=== PATIENT | female | born 1980 | race Caucasian/White ===

== ENCOUNTER 2018-11-17 04:27 | Emergency (ER) | payer BC ==
[~2018-11-17] VITALS: Ht 165.1 cm; Wt 117.9 kg
[~2018-11-17 04:27] MED LIST: CETI10CA PO; DCS100C PO; FERR-57 PO; HYDR-3720 PO; IBP800T PO; METR500T PO
--- OUTSIDE RECORDS SUMMARY | 2018-11-17 04:34 | XMS REPORT ---
Author LIAM Goldman [facility] eClinicalWorks Address Unknown Phone Unavailable Care Team Providers Care Translator And Interpreter Name Role Phone LIAM KAY CP Unavailable Allergies, Adverse Reactions, Alerts Substance Reaction Event Type N.K.D.A. Info Not Available Non Drug Allergy Problems Problem Type Condition Code Onset Dates Condition Status Problem Excessive or frequent menstruation 626.2 Active Problem Dysfunction of Eustachian tube 381.81 Active Problem Unspecified anemia 285.9 Active Assessment Menstrual period late N91.0 Active Problem Allergic rhinitis, cause unspecified 477.9 Active Problem Unspecified conjunctivitis 372.30 Active Medications Medication Code System Code Instructions Start Date End Date Status Dosage cetirizine [facility] [address]-98 10 mg March 04, 2014 take 1 tablet (10 mg) by oral route once daily Ferrous Sulfate [facility] [address]-16 325 (65 Fe) MG Orally 2 times a day 1 tablet Procedures Procedure Coding System Code Date ASSAY THYROID STIM HORMONE CPT-4 22010 Jul 11, 2015 VENIPUNCT, ROUTINE* CPT-4 33927 Jul 11, 2015 CHORIONIC GONADOTROPIN ASSAY CPT-4 87159 Jul 11, 2015 Office Visit, Est Pt., Level 3 CPT-4 71267 Jul 11, 2015 Vital Signs Date/Time: Jul 11, 2015 Temperature 98.6 F Weight 261.3 lbs Height 65 in BMI 43.48 Index Blood Pressure Diastolic 76 mmHg Blood Pressure Systolic 116 mmHg Cardiac Monitoring Heart Rate 76 bpm Results Name Result Date Reference Range Unit Abnormality Flag TSH ----TSH 1.570 [id number] 0.450-4.500 uIU/mL ROUTINE VENIPUNCTURE TEST, SERUM (QUAL) ----hCG,Beta Subunit,Qual,Serum Negative [id number] Negative <6 mIU/mL Summary Purpose eClinicalWorks Submission
--- OUTSIDE RECORDS SUMMARY | 2018-11-17 04:34 | XMS REPORT ---
Author Author BÁRBARA LARRY Organization eClinicalWorks Address Unknown Phone Unavailable Care Team Providers Care Inspector Wire Products Name Role Phone BÁRBARA LARRY CP Unavailable Allergies No Known Allergies Problems Problem Type Condition Code Onset Dates Condition Status Assessment Family history of diabetes mellitus Z83.3 Active Assessment General medical exam Z00.00 Active Assessment Morbid obesity E66.01 Active Problem Morbid obesity E66.01 Active Problem Family history of diabetes mellitus Z83.3 Active Problem General medical exam Z00.00 Active Problem Family history of PCOS Z84.2 Active Problem Encounter for weight loss counseling Z71.3 Active Problem Family history of cancer Z80.9 Active Problem Hirsutism L68.0 Active Assessment Family history of cancer Z80.9 Active Assessment Family history of PCOS Z84.2 Active Assessment Hirsutism L68.0 Active Medications No Known Medications Procedures Procedure Coding System Code Date COMPLETE CBC W/AUTO DIFF WBC CPT-4 53170 Oct 25, 2015 COMPREHEN METABOLIC PANEL CPT-4 99574 Oct 25, 2015 GLYCATED HEMOGLOBIN TEST CPT-4 51328 Oct 25, 2015 ASSAY OF TOTAL TESTOSTERONE CPT-4 97326 Oct 25, 2015 ASSAY THYROID STIM HORMONE CPT-4 62465 Oct 25, 2015 VENIPUNCT, ROUTINE* CPT-4 83064 Oct 25, 2015 GONADOTROPIN (FSH) CPT-4 30563 Oct 25, 2015 GONADOTROPIN (LH) CPT-4 34017 Oct 25, 2015 ASSAY OF INSULIN CPT-4 06671 Oct 25, 2015 ASSAY OF PROLACTIN CPT-4 88646 Oct 25, 2015 Results Name Result Date Reference Range Unit Abnormality Flag ROUTINE VENIPUNCTURE Summary Purpose eClinicalWorks Submission
--- OUTSIDE RECORDS SUMMARY | 2018-11-17 04:34 | XMS REPORT ---
Author Author ALEYDA NAPIER Organization [facility] Address [address] [place] [address] Care Team Providers Care Babcock Tester Name Role Phone MARLINE NAPIERICE Unavailable PROBLEMS Type Condition ICD9-CM Code LZG85-CB Code Onset Dates Condition Status SNOMED Code Problem Encounter for weight loss counseling Z71.3 Active 648932201 Problem Hirsutism L68.0 Active 383385278 Problem Family history of diabetes mellitus Z83.3 Active 172594495 Problem Family history of cancer Z80.9 Active 756408830 Problem Family history of PCOS Z84.2 Active Problem Morbid obesity E66.01 Active 399205525 Problem General medical exam Z00.00 Active 406849177 ALLERGIES No Known Allergies SOCIAL HISTORY Never Assessed PLAN OF CARE Activity Details Follow Up prn Reason: VITAL SIGNS Height 65 in 2016-12-03 Weight 250.2 lbs 2016-12-03 Temperature 98.0 degrees Fahrenheit 2016-12-03 Heart Rate 80 bpm 2016-12-03 Respiratory Rate 18 2016-12-03 BMI 41.63 kg/m2 2016-12-03 Blood pressure systolic 126 mmHg 2016-12-03 Blood pressure diastolic 72 mmHg 2016-12-03 MEDICATIONS Medication Instructions Dosage Frequency Start Date End Date Duration Status Ferrous Sulfate 325 (65 Fe) MG Orally 2 times a day 1 tablet 12h Active cetirizine 10 mg by oral route 2 times a day tablet 12h February, Active RESULTS No Results PROCEDURES No Known procedures IMMUNIZATIONS No Known Immunizations MEDICAL (GENERAL) HISTORY Type Description Date Medical History Anemia Surgical History Tonsillectomy Surgical History Right elbow bone spur removed Surgical History Fibroid Tumor removed Hospitalization History Past surgery
--- OUTSIDE RECORDS SUMMARY | 2018-11-17 04:34 | XMS REPORT ---
Author Author BÁRBARA LARRY Organization eClinicalWorks Address Unknown Phone Unavailable Care Team Providers Care Z Os Mainframe Systems Programmer Name Role Phone BÁRBARA LARRY CP Unavailable Allergies, Adverse Reactions, Alerts Substance [...] Hirsutism L68.0 Active Assessment Family history of PCOS Z84.2 Active Assessment Hirsutism L68.0 Active Assessment Family history of cancer Z80.9 Active Medications Medication Code System Code Instructions Start Date End Date Status Dosage Spironolactone [facility] [address]-96 50 MG Orally Twice a day Oct 24, 2015 1 tablet Ferrous Sulfate [facility] [address]-52 325 (65 Fe) MG Orally 2 times a day 1 tablet cetirizine [facility] [address]-68 10 mg March 04, 2014 take 1 tablet (10 mg) by oral route once daily Procedures Procedure Coding System Code Date Office Visit, Est Pt., Level 3 CPT-4 58960 Oct 24, 2015 Vital Signs Date/Time: Oct 24, 2015 Temperature 98.6 F Weight 252.3 lbs Height 65 in BMI 41.98 Index Blood Pressure Diastolic 82 mmHg Blood Pressure Systolic 118 mmHg Cardiac Monitoring Heart Rate 80 bpm Results No Known Results Summary Purpose eClinicalWorks Submission
--- OUTSIDE RECORDS SUMMARY | 2018-11-17 04:34 | XMS REPORT ---
Author Author LIAM KAY [facility] eClinicalWorks Address Unknown Phone Unavailable Care Team Providers Care A And P Mechanic Name Role Phone LIAM KAY CP Unavailable Allergies, Adverse Reactions, Alerts Substance Reaction Event Type N.K.D.A. Info Not Available Non Drug Allergy Problems Problem Type Condition Code Onset Dates Condition Status Problem Unspecified anemia 285.9 Active Problem Excessive or frequent menstruation 626.2 Active Problem Encounter for weight loss counseling Z71.3 Active Problem Unspecified conjunctivitis 372.30 Active Assessment Encounter for weight loss counseling Z71.3 Active Problem Dysfunction of Eustachian tube 381.81 Active Problem Allergic rhinitis, cause unspecified 477.9 Active Medications Medication Code System Code Instructions Start Date End Date Status Dosage Phentermine HCl [facility] [address]-34 37.5 MG Orally Once a day 30 minutes before breakfast Aug 25, 2015 as directed Ferrous Sulfate [facility] [address]-35 325 (65 Fe) MG Orally 2 times a day 1 tablet cetirizine [facility] [address]-78 10 mg March 04, 2014 take 1 tablet (10 mg) by oral route once daily Procedures Procedure Coding System Code Date Office Visit, Est Pt., Level 3 CPT-4 76997 Sep 22, 2015 Vital Signs Date/Time: Sep 22, 2015 Temperature 97.9 F Weight 256 lbs Height 65 in BMI 42.60 Index Blood Pressure Diastolic 80 mmHg Blood Pressure Systolic 110 mmHg Cardiac Monitoring Heart Rate 84 bpm Results No Known Results Summary Purpose eClinicalWorks Submission
--- OUTSIDE RECORDS SUMMARY | 2018-11-17 04:35 | XMS REPORT ---
Author Author BÁRBARA LARRY Organization eClinicalWorks Address Unknown Phone Unavailable Care Team Providers Care Agricultural And Forestry Supervisor Name Role Phone BÁRBARA LARRY CP Unavailable Allergies, Adverse Reactions, Alerts Substance Reaction Event Type N.K.D.A. Info Not Available Non Drug Allergy Problems Problem Type Condition Code Onset Dates Condition Status Assessment Hirsutism L68.0 Active Assessment Constipation K59.00 Active Problem Morbid obesity E66.01 Active Problem Family history of diabetes mellitus Z83.3 Active Problem General medical exam Z00.00 Active Problem Family history of PCOS Z84.2 Active Problem Encounter for weight loss counseling Z71.3 Active Problem Family history of cancer Z80.9 Active Problem Hirsutism L68.0 Active Medications Medication Code System Code Instructions Start Date End Date Status Dosage Ferrous Sulfate [facility] [address]-95 325 (65 Fe) MG Orally 2 times a day 1 tablet cetirizine [facility] [address]-85 10 mg March 04, 2014 take 1 tablet (10 mg) by oral route once daily Spironolactone [facility] [address]-08 100 MG Orally Once a day Nov 07, 2015 1 tablet Procedures Procedure Coding System Code Date Office Visit, Est Pt., Level 3 CPT-4 92912 Nov 07, 2015 Vital Signs Date/Time: Nov 07, 2015 Temperature 98.0 F Weight 247.5 lbs Height 65 in BMI 41.18 Index Blood Pressure Diastolic 80 mmHg Blood Pressure Systolic 120 mmHg Cardiac Monitoring Heart Rate 82 bpm Results No Known Results Summary Purpose eClinicalWorks Submission
--- OUTSIDE RECORDS SUMMARY | 2018-11-17 04:35 | XMS REPORT ---
Author LIAM Goldman [facility] eClinicalWorks Address Unknown Phone Unavailable Care Team Providers Care Duct Installer Name Role Phone LIAM KAY CP Unavailable [...] Date End Date Status Dosage Phentermine HCl [facility] [address]-28 37.5 MG Orally Once a day 30 minutes before breakfast Aug 25, 2015 as directed Ferrous Sulfate [facility] [address]-07 325 (65 Fe) MG Orally 2 times a day 1 tablet cetirizine [facility] [address]-85 10 mg March 04, 2014 take 1 tablet (10 mg) by oral route once daily Procedures Procedure Coding System Code Date Office Visit, Est Pt., Level 3 CPT-4 39806 Aug 25, 2015 Vital Signs Date/Time: Aug 25, 2015 Temperature 98.4 F Weight 262.1 lbs Height 65 in BMI 43.61 Index Blood Pressure Diastolic 84 mmHg Blood Pressure Systolic 122 mmHg Cardiac Monitoring Heart Rate 80 bpm Results No Known Results Summary Purpose eClinicalWorks Submission
--- OUTSIDE RECORDS SUMMARY | 2018-11-17 04:35 | XMS REPORT | Continuity of Care Document ---
Author Author [facility] Address Unknown Phone Unavailable Allergies Active Description Code Type Severity Reaction Onset Reported/Identified Relationship to Patient Clinical Status Yes No Known Drug Allergies [id number] Drug Allergy Unknown N/A 04/09/2010 Medications There is no data. Problems Date Dx Coded Attending Type Code Diagnosis Diagnosed By 05/06/2013 EDNA MAY DO 285.9 ANEMIA 05/06/2013 WAYNE LAMBERT MD 285.9 ANEMIA 05/06/2013 WAYNE LAMBERT MD 285.9 ANEMIA 05/06/2013 MAVERICK PINZON APRN R 285.9 ANEMIA 2013 WAYNE LAMBERT MD 626.2 MENORRHAGIA 2013 WAYNE LAMBERT MD 626.2 MENORRHAGIA 2013 MAVERICK PINZON APRN R 626.2 MENORRHAGIA 01/06/2014 NUNO MADRID MD Ot 218.9 UTERINE LEIOMYOMA NOS 01/06/2014 NUNO MADRID MD Ot 278.00 OBESITY, NOS 01/06/2014 NUNO MADRID MD Ot 285.1 AC POSTHEMORRHAG ANEMIA 01/06/2014 NUNO MADRID MD, Ot V85.41 BODY MASS INDEX 40.0-44.9, ADULT 03/04/2014 MAVERICK PINZON APRN R 372.30 CONJUNCTIVITIS UNSPECIFIED 03/04/2014 MAVERICK PINZON APRN R 381.81 DYSFUNCTION OF EUSTACHIAN TUBE 03/04/2014 MAVERICK PINZON APRN R 477.9 ALLERGIC RHINITIS CAUSE UNSPECIFIED 11/17/2018 WAYNE LAMBERT MD, Ot 626.2 EXCESSIVE MENSTRUATION 11/17/2018 WAYNE LAMBERT MD, Ot 793.5 NOSP (ABN) FINDINGS ON RADIOLOGICAL OT 11/17/2018 WAYNE LAMBERT MD, Ot 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 11/17/2018 NUNO MADRID MD, Ot 621.2 HYPERTROPHY OF UTERUS 11/17/2018 NUNO MADRID MD, Ot 625.8 FEM GENITAL SYMPTOMS NEC 11/17/2018 NUNO MADRID MD, Ot V72.63 PRE-PROCEDURAL LABORATORY EXAMINATION 11/17/2018 NUNO MADRID MD, Ot V72.84 EXAM PRE-OPERATIVE NOS 11/17/2018 NUNO MADRID MD, Ot V74.8 SCREEN-BACTERIAL DIS NEC Procedures Code [place] [address] ROUTINE VENIPUNCTURE 08/24/2013 46501 US RENAL ULTRASOUND, LIMITED (W/RESIDUAL) 08/24/2013 60261 US PELVIC COMPL (REFLEX CPT - 78703) 08/24/2013 45584 CBC 08/24/2013 Obstetric Nuno [place] 2013 14973 TEST, URINE (IN- HOUSE) 2013 02249 ENDOMETRIAL BIOPSY 2013 77006 ROUTINE VENIPUNCTURE 01/26/2014 75488 IRON SERUM 01/26/2014 73016 IRON BNDNG CAP 01/26/2014 IRGROUP IRON GROUP (Iron,TIBC, Ferritin) 01/26/2014 Results There is no data. Encounters ACCT No. Visit Date/Time Discharge Status Pt. Type Provider Facility Loc./Unit Complaint [id number] 03/04/2014 12:47:00 03/04/2014 23:59:59 CLS Outpatient MAVERICK PINZON APRN [id number] 01/26/2014 11:11:00 01/26/2014 23:59:59 CLS Outpatient WAYNE LAMBERT MD [id number] 2013 14:48:00 2013 23:59:59 CLS Outpatient WAYNE LAMBERT MD [id number] 08/24/2013 10:09:00 08/24/2013 23:59:59 CLS Outpatient EDNA MAY DO [id number] 01/03/2014 06:49:00 01/06/2014 10:35:00 DIS Outpatient NUNO MADRID MD [facility] SDC COMPLEX UTERINE MASS [id number] 12/27/2013 15:23:00 12/27/2013 23:59:59 CLS Outpatient NUNO MADRID MD [facility] PREOP COMPLEX UTERINE MASS [id number] 11/25/2013 09:00:00 11/25/2013 23:59:59 CLS Outpatient NUNO MADRID MD [facility] RAD UTERINE PELVIC MASS [id number] 09/01/2013 13:33:00 09/01/2013 23:59:59 CLS Outpatient PETRA WILLIS, WAYNE Tanner [facility] RAD FAM HX PCKD,MENORHAGGIA [id number] 11/17/2018 04:31:00 ACT Emergency LESLIE CLEMENTS DO [facility] ER CP,UPPER ABD PAIN ALL THE WAY TO THE BACK
[2018-11-17] MEDS ORDERED: LACTATED RINGERS 1,000 ML IV ONE ×2 (04:38→05:34)
--- NOTE | 2018-11-17 04:41 | ED Abdominal Pain ---
General Stated Complaint: CP,UPPER ABD PAIN ALL THE WAY TO THE BACK Source of Information: Patient History of Present Illness Date Seen by Provider: Nov 17, 2018 Time Seen by Provider: 04:40 Initial Comments PT ARRIVES VIA POV FROM HOME C/O DIFFUSE UPPER ABDOMINAL PAIN--ALL ACROSS UPPER ABDOMEN/LOWER RIBS AND ALL THE WAY AROUND / THROUGH TO HER BACK--ALONG BRA LINE PAIN BEGAN AT 0215--WOKE HER FROM SLEEP RATES PAIN 8/10 + NAUSEA, VOMITED X 2 NO DIARRHEA OR CONSTIPATION--HAD A NORMAL BM IN LAST 24 HOURS NO FEVER NO URINARY SYMPTOMS -VOIDED JUST PRIOR TO ARRIVAL WORSE WITH LAYING DOWN, IMPROVED A LITTLE BY SITTING UP PT HAS EATEN AND DRANK NORMALLY--HAD TACO WILLOUGHBY AT 1600 YESTERDAY, AND HAS HAD WATER TO DRINK THIS EVENING HAS HAD SIMILAR, BUT NOT THIS BAD--TOOK A ZANTAC AND IT WENT AWAY IN 15 MINUTES TONIGHT TOOK AN OTC ACID [employer] AT 0230 WITHOUT RELIEF. LMP 3 WEEKS AGO, NORMAL. NO CONTROL PCP: [facility] Allergies and Home Medications Allergies Coded Allergies: No Known Drug Allergies (Unverified , 04/09/10) Home Medications Cetirizine Hcl 10 Mg Capsule, 10 MG PO DAILY, (Reported) Docusate Sodium 100 Mg Capsule, 1 CAP PO DAILY PRN for CONSTIPATION Prescribed by: CARLA ANDERSON on 01/06/14 0732 Ferrous Sulfate 325 Mg Tablet, 325 MG PO BID, (Reported) Hydrocodone Bit/Acetaminophen 1 Each Tablet, 1-2 TAB PO Q3H PRN for PAIN Prescribed by: CARLA ANDERSON on 01/06/14 0732 Hyoscyamine Sulfate 0.125 Mg Tab.subl, 1-2 TAB SL Q4H Prescribed by: LESLIE CLEMENTS on 11/17/18 0709 Ibuprofen 800 Mg Tablet, 1 TAB PO Q6H PRN for p Prescribed by: CARLA ANDERSON on 01/06/14 0732 Ondansetron 4 Mg Tab.rapdis, 4 MG PO Q4H Prescribed by: LESLIE CLEMENTS on 11/17/18 0709 Pantoprazole Sodium 40 Mg Tablet.dr, 40 MG PO DAILY Prescribed by: LESLIE CLEMENTS on 11/17/18 0709 Tramadol HCl 50 Mg Tablet, 50 MG PO Q4H Prescribed by: LESLIE CLEMENTS on 11/17/18 0709 Patient Home Medication List Home Medication List Reviewed: Yes Review of Systems Review of Systems Constitutional: no symptoms reported Respiratory: No Symptoms Reported Cardiovascular: See HPI Gastrointestinal: See HPI, Abdominal Pain; Denies Constipated, Denies Diarrhea ; Nausea, Vomiting Genitourinary: No Symptoms Reported Musculoskeletal: see HPI, back pain Skin: no symptoms reported Psychiatric/Neurological: No Symptoms Reported Endocrine: No Symptoms Reported Hematologic/Lymphatic: No Symptoms Reported Past Hhdaatd-Szstap-Oedgno Hx Patient Social History Alcohol Use: Denies Use Recreational Drug Use: No Smoking Status: Never a Smoker Recent Foreign Travel: No Contact w/Someone Who Travel: No Seasonal Allergies Seasonal Allergies: Yes Past Medical History Surgeries: Yes (RIGHT ELBOW SURGERY FOR DISLOCATION AND REMOVAL OF BONE SPUR; REMOVAL OF UTERINE FIBROID) Orthopedic, Tonsillectomy Respiratory: No Cardiac: No Neurological: No : No Reproductive Disorders: Yes (COMPLEX MASS IN UTERUS) Genitourinary: No Gastrointestinal: No Musculoskeletal: Yes (RIGHT ELBOW DISLOCATION WITH SURGERY) Endocrine: Yes (OBESE) HEENT: No Cancer: No Psychosocial: No Integumentary: No Blood Disorders: Yes (ANEMIA) Family Medical History Cancer 09 BROTHER (TESTICULAR) Family history: Diabetes mellitus 03 FATHER Family history: Hypertension 03 FATHER 03 MOTHER Kidney disease 03 FATHER No Family History of: Abdominal aortic aneurysm Alcoholism Cancer of colon Dementia Family history: Alzheimer's disease Family history: Arthritis Family history: Asthma Family history: Cardiovascular disease Family history: Gastrointestinal disease Family history: Thyroid disorder Hereditary disease History of - respiratory disease Myocardial infarction Parkinson's disease Prostate cancer Psychotic disorder Seizure disorder Stroke Physical Exam Vital Signs Vital Signs - First Documented 11/17/18 04:36 Temp 98.0 Pulse 83 Resp 19 B/P (MAP) 146/117 (127) Capillary Refill : Height/Weight/BMI Height: 5'5.00" Weight: 244lbs. oz. [id number]; BMI Method: General Appearance: obese, other (MILDLY ANXIOUS) Neck: normal inspection Respiratory: normal breath sounds, no respiratory distress, no accessory muscle use Cardiovascular: regular rate, rhythm, no murmur Gastrointestinal: normal bowel sounds, soft, no organomegaly, no pulsatile mass , tenderness (EPIGASTRIC TENDERNESS--PALPATION REPRODUCES PAIN ) Neurologic/Psychiatric: notching press operator II-XII nml as tested, no motor/sensory deficits, alert, oriented x 3 Skin: normal color, warm/dry; No rash Progress/Results/Core Measures Results/Orders Lab Results Laboratory Tests Test 11/17/18 04:50 11/17/18 06:20 Range/Units White Blood Count 8.4 4.3-11.0 10^3/uL Red Blood Count 5.14 4.35-5.85 10^6/uL Hemoglobin 15.4 11.5-16.0 G/DL Hematocrit 45 35-52 % Mean Corpuscular Volume 87 80-99 FL Mean Corpuscular Hemoglobin 30 25-34 PG Mean Corpuscular Hemoglobin Concent 35 32-36 G/DL Red Cell Distribution Width 13.2 10.0-14.5 % Platelet Count 268 130-400 10^3/uL Mean Platelet Volume 9.9 7.4-10.4 FL Neutrophils (%) (Auto) 63 42-75 % Lymphocytes (%) (Auto) 29 12-44 % Monocytes (%) (Auto) 7 0-12 % Eosinophils (%) (Auto) 1 0-10 % Basophils (%) (Auto) 0 0-10 % Neutrophils # (Auto) 5.3 1.8-7.8 X 10^3 Lymphocytes # (Auto) 2.4 1.0-4.0 X 10^3 Monocytes # (Auto) 0.6 0.0-1.0 X 10^3 Eosinophils # (Auto) 0.1 0.0-0.3 10^3/uL Basophils # (Auto) 0.0 0.0-0.1 10^3/uL Prothrombin Time 13.4 12.2-14.7 SEC INR Comment 1.0 0.8-1.4 Activated Partial Thromboplast Time 37 H 24-35 SEC Sodium Level 137 135-145 MMOL/L Potassium Level 3.6 3.6-5.0 MMOL/L Chloride Level 102 98-107 MMOL/L Carbon Dioxide Level 22 21-32 MMOL/L Anion Gap 13 5-14 MMOL/L Blood Urea Nitrogen 15 7-18 MG/DL Creatinine 1.12 0.60-1.30 MG/DL Estimat Glomerular Filtration Rate 54 BUN/Creatinine Ratio 13 Glucose Level 124 H 70-105 MG/DL Calcium Level 9.9 8.5-10.1 MG/DL Corrected Calcium 9.6 8.5-10.1 MG/DL Magnesium Level 2.3 1.8-2.4 MG/DL Total Bilirubin 0.4 0.1-1.0 MG/DL Aspartate Amino Transf (AST/SGOT) 15 5-34 U/L Alanine Aminotransferase (ALT/SGPT) 20 0-55 U/L Alkaline Phosphatase 49 40-136 U/L Total Creatine Kinase 37 29-168 U/L Creatine Kinase MB 0.4 <6.6 NG/ML Troponin I < 0.028 <0.028 NG/ML B-Type Natriuretic Peptide < 10.0 <100.0 PG/ML Total Protein 8.5 H 6.4-8.2 GM/DL Albumin 4.4 3.2-4.5 GM/DL Amylase Level 49 25-125 U/L Lipase 25 8-78 U/L Serum Test, Qualitative NEGATIVE NEGATIVE Urine Color YELLOW Urine Clarity CLEAR Urine pH 7 5-9 Urine Specific Lohman 1.005 L 1.016-1.022 Urine Protein NEGATIVE NEGATIVE Urine Glucose (UA) NEGATIVE NEGATIVE Urine Ketones NEGATIVE NEGATIVE Urine Nitrite NEGATIVE NEGATIVE Urine Bilirubin NEGATIVE NEGATIVE Urine Urobilinogen NORMAL NORMAL MG/DL Urine Leukocyte Esterase NEGATIVE NEGATIVE Urine RBC (Auto) NEGATIVE NEGATIVE Urine RBC NONE /HPF Urine WBC NONE /HPF Urine Squamous Epithelial Cells 2-5 /HPF Urine Crystals NONE /LPF Urine Bacteria TRACE /HPF Urine Casts NONE /LPF Urine Mucus NEGATIVE /LPF Urine Culture Indicated NO My Orders Orders - LESLIE CLEMENTS DO Saline Lock/Iv-Start (11/17/18 04:38) Ekg Tracing (11/17/18 04:38) Monitor-Rhythm Ecg Trace Only (11/17/18 04:38) Amylase (11/17/18 04:38) BNP (11/17/18 04:38) Cbc With Automated Diff (11/17/18 04:38) Comprehensive Metabolic Panel (11/17/18 04:38) Creatine Kinase (11/17/18 04:38) Creatine Kinase Mb (11/17/18 04:38) Hcg,Qualitative Serum (11/17/18 04:38) Lipase (11/17/18 04:38) Magnesium (11/17/18 04:38) Protime With Inr (11/17/18 04:38) Partial Thromboplastin Time (11/17/18 04:38) Troponin I (11/17/18 04:38) Ua Culture If Indicated (11/17/18 04:38) Saline Lock/Iv-Start (11/17/18 04:38) Lactated Ringers (Lr 1000 Ml Iv Solution (11/17/18 04:38) Ondansetron Injection (Zofran Injectio (11/17/18 04:45) Pantoprazole Injection (Protonix Injecti (11/17/18 04:45) Hyoscyamine Sl Tablet (Levsin Sl Tablet) (11/17/18 05:00) Ct Abdomen/Pelvis W (11/17/18 05:34) Acute Abd Series (11/17/18 05:34) Saline Lock/Iv-Start (11/17/18 05:34) Lactated Ringers (Lr 1000 Ml Iv Solution (11/17/18 05:34) Ketorolac Injection (Toradol Injection) (11/17/18 05:34) Medications Given in ED Current Medications Medications Dose Ordered Sig/Lisbeth Route Start Time Stop Time Status Last Admin Dose Admin Hyoscyamine Sulfate 0.25 mg ONCE ONCE PO 11/17/18 05:00 11/17/18 05:01 DC 11/17/18 05:01 0.25 MG Lactated Ringer's 1,000 ml @ 0 mls/hr Q0M ONCE IV 11/17/18 04:38 11/17/18 04:40 DC 11/17/18 05:01 999 MLS/HR Lactated Ringer's 1,000 ml @ 0 mls/hr Q0M ONCE IV 11/17/18 05:34 11/17/18 05:38 DC 11/17/18 05:41 999 MLS/HR Ondansetron HCl 4 mg ONCE ONCE IVP 11/17/18 04:45 11/17/18 04:46 DC 11/17/18 05:01 4 MG Pantoprazole 40 mg ONCE ONCE IV 11/17/18 04:45 11/17/18 04:46 DC 11/17/18 05:01 40 MG Vital Signs/I&O 11/17/18 04:36 Temp 98.0 Pulse 83 Resp 19 B/P (MAP) 146/117 (127) Progress Progress Note : Progress Note NAUSEA IMPROVED WITH ZOFRAN GIVEN TORADOL FOR PAIN AND PAIN IS MUCH IMPROVED, AND BP DOWN WELL, WITH IMPROVEMENT OF PAIN PT ADVISED OF NEED FOR FOLLOW UP WITH PCP FOR FURTHER EVALUATION OF ABNORMAL FINDINGS ON CT SCAN Initial ECG Impression Date: Nov 17, 2018 Initial ECG Impression Time: 04:39 Initial ECG Rate: 76 Initial ECG Rhythm: Normal Sinus Initial ECG Impression: Normal Initial ECG Comparisson: No Previous ECG Available Diagnostic Imaging Comments ACUTE ABDOMEN XRAYS--NON SPECIFIC BOWEL GAS PATTERN, PENDING RADIOLOGIST REVIEW CT ABDOMEN/PELVIS--MODERATELY DISTENDED GALL BLADDER. NON-SPECIFIC FLUID FILLED DENSITY IN MEDIASTINUM, LEFT ADNEXAL CYSTS--PER STAT RAD VIA FAX @ 0568 Reviewed: Reviewed by Me Departure Impression Primary Impression: Epigastric abdominal pain Additional Impressions: POSSIBLE BILIARY COLIC Abnormal finding on CT scan Disposition: HOME, SELF-CARE Condition: Improved Departure-Patient Inst. Referrals: [facility] (PCP/Family) Primary Care Physician Patient Instructions: Acute Abdomen (Belly Pain), Adult (DC), POSS GALLSTONE-W/ BILIARY COLIC Add. Discharge Instructions: CLEAR LIQUIDS--WATER, BROTH, JELLO, GATORADE NO FOOD UNTIL YOUR SYMPTOMS ARE GONE, THEN ADD BRATS DIET TO CLEAR LIQUIDS-- BANANAS, RICE, APPLESAUCE, TOAST, SALTINES FOLLOW UP WITH [facility] THIS WEEK FOR FURTHER CARE RETURN TO ER IF WORSE Scripts Tramadol HCl (Ultram) 50 Mg Tablet 50 MG PO Q4H, #20 TAB Prov: LESLIE CLEMENTS DO 11/17/18 Pantoprazole Sodium (Protonix) 40 Mg Tablet.dr 40 MG PO DAILY, #15 TAB Prov: LESLIE CLEMENTS DO 11/17/18 Hyoscyamine Sulfate (Levsin-Sl) 0.125 Mg Tab.subl 1-2 TAB SL Q4H for Abdominal Pain, #15 TAB Prov: LELSIE CLEMENTS DO 11/17/18 Ondansetron (Ondansetron Odt) 4 Mg Tab.rapdis 4 MG PO Q4H for Nausea/Vomiting, #10 TAB Prov: LESLIE CLEMENTS DO 11/17/18 LESLIE CLEMENTS DO Nov 17, 2018 04:41
[2018-11-17] MEDS ORDERED: ONDANSETRON 4 MG/2 ML (SDV) Z0FRAN IVP ONE (04:45)
[2018-11-17] MEDS ORDERED: PANTOPRAZOLE 40 MG (PROTONIX) VIAL IV ONE (04:45)
[2018-11-17 04:59] LABS: BASOPHILS % (AUTO) 0 % (0-10); EOSINOPHILS # (AUTO) 0.1 10^3/uL (0.0-0.3); EOSINOPHILS % (AUTO) 1 % (0-10); HEMATOCRIT 45 % (35-52); HEMOGLOBIN 15.4 G/DL (11.5-16.0); LYMPHOCYTES # (AUTO) 2.4 X 10^3 (1.0-4.0); LYMPHOCYTES % (AUTO) 29 % (12-44); MEAN CORPUSCULAR HEMOGLOBIN 30 PG (25-34); MEAN CORPUSCULAR HGB CONC 35 G/DL (32-36); MEAN CORPUSCULAR VOLUME 87 FL (80-99); MEAN PLATELET VOLUME 9.9 FL (7.4-10.4); MONOCYTES # (AUTO) 0.6 X 10^3 (0.0-1.0); MONOCYTES % (AUTO) 7 % (0-12); NEUTROPHILS # (AUTO) 5.3 X 10^3 (1.8-7.8); NEUTROPHILS % (AUTO) 63 % (42-75); PLATELET COUNT 268 10^3/uL (130-400); RED CELL DISTRIBUTION WIDTH 13.2 % (10.0-14.5); WHITE BLOOD COUNT 8.4 10^3/uL (4.3-11.0)
[2018-11-17] MEDS ORDERED: HYOSCYAMINE 0.125 MG (LEVSIN) TAB PO ONE (05:00)
[2018-11-17 05:12] LABS: PROTHROMBIN TIME PATIENT 13.4 SEC (12.2-14.7)
[2018-11-17 05:21] LABS: ALANINE AMINOTRANSFERASE 20 U/L (0-55); ALBUMIN 4.4 GM/DL (3.2-4.5); ALKALINE PHOSPHATASE 49 U/L (40-136); AMYLASE 49 U/L (25-125); BILIRUBIN,TOTAL 0.4 MG/DL (0.1-1.0); BUN/CREATININE RATIO 13; CALCIUM 9.9 MG/DL (8.5-10.1); CARBON DIOXIDE 22 MMOL/L (21-32); CHLORIDE 102 MMOL/L (98-107); CREATINE KINASE 37 U/L (29-168); CREATININE SERUM 1.12 MG/DL (0.60-1.30); GFR ESTIMATED 54; GLUCOSE 124 MG/DL (70-105); LIPASE 25 U/L (8-78); MAGNESIUM 2.3 MG/DL (1.8-2.4); POTASSIUM 3.6 MMOL/L (3.6-5.0); SODIUM 137 MMOL/L (135-145); TOTAL PROTEIN 8.5 GM/DL (6.4-8.2)
[2018-11-17 05:27] LABS: CREATINE KINASE MB 0.4 NG/ML (<6.6)
[2018-11-17] MEDS ORDERED: KETOROLAC 30 MG/ML VIAL IVP STA (05:34)
[2018-11-17 06:27] LABS: BILIRUBIN,URINE NEGATIVE (NEGATIVE); CLARITY,URINE CLEAR; COLOR,URINE YELLOW; GLUCOSE, URINE (UA) NEGATIVE (NEGATIVE); KETONES,URINE NEGATIVE (NEGATIVE); LEUKOCYTE ESTERASE ,URINE NEGATIVE (NEGATIVE); NITRITE,URINE NEGATIVE (NEGATIVE); PH,URINE 7 (5-9); PROTEIN,URINE NEGATIVE (NEGATIVE); UROBILINOGEN,URINE NORMAL (NORMAL)
[2018-11-17 06:40] LABS: BACTERIA,URINE TRACE /HPF
[2018-11-17] MEDS ORDERED: TRAM-42 PO (07:09)
[2018-11-17] MEDS ORDERED: PANT40TA2 PO (07:09)
[2018-11-17] MEDS ORDERED: ONDA4TAB11 PO (07:09)
[2018-11-17] MEDS ORDERED: HYOS0.1283 SL (07:09)
[2018-11-17 07:15] VITALS: BP 146/117
--- NOTE | 2018-11-17 08:27 | Diagnostic Imaging Report ---
INDICATION: Upper abdominal and chest pain TECHNIQUE: Single view chest with supine and upright radiographs of the abdomen. 5:59 AM CORRELATION STUDY: Abdomen 04/10/2010 FINDINGS: Minimal atelectasis left lung base. Borderline heart size without evidence for failure. Scattered gas-filled loops of bowel are present. No abnormally dilated loops of bowel or differentiating air-fluid levels suggest high degree obstruction. No significant free intraperitoneal air. IMPRESSION: 1. Minimal left basilar atelectasis. 2. Nonobstructing appearing bowel gas pattern. Dictated by: Dictated on workstation # [id number]
--- NOTE | 2018-11-17 08:41 | Diagnostic Imaging Report ---
PROCEDURE: CT abdomen and pelvis with contrast. TECHNIQUE: Multiple contiguous axial images were obtained through the abdomen and pelvis after administration of intravenous contrast. INDICATION: Chest pain, upper abdominal pain. CORRELATION STUDY: None. FINDINGS: LOWER THORAX: Heart size appearing normal. There is partial visualization of an approximately 2.4 x 2.2 cm fluid density mass in the mediastinum adjacent to the right atrium. Visualized lung bases clear. LIVER: Some degree of hepatic steatosis. No definitive focal lesion. GALLBLADDER: Gallbladder somewhat elongated and distended but otherwise unremarkable. No bile duct dilatation. SPLEEN: Unremarkable. PANCREAS: Unremarkable. ADRENAL GLANDS: Unremarkable. KIDNEYS: Normal configuration. No calcification or obstruction. ABDOMINAL AORTA: Unremarkable, nonaneurysmal. GASTROINTESTINAL TRACT: No obstruction or inflammation. Normal appendix. URINARY BLADDER: Unremarkable. REPRODUCTIVE: Uterus is somewhat lobulated with a rounded structure in the right upper fundal aspect. Probable fibroid changes. Cystic change suggested about the left adnexa. Largest cystic structure 3.3 x 3.1 x 4.0 cm. No pelvic fluid. OSSEOUS STRUCTURES: No acute abnormality. OTHER: None. IMPRESSION: 1. Gallbladder is noted to be distended. No definitive evidence for cholelithiasis. However, if further assessment is desired, ultrasound imaging may be of additional benefit. 2. Cystic mass in the mediastinum partially visualized. This finding is nonspecific, could be reflective of an underlying duplication or pericardial cyst. Perhaps nonemergent followup CT imaging of the chest with and without contrast recommended. 3. Cystic change involving the left adnexa. Lobulated appearance about the uterus suspect for fibroids. Consideration for followup pelvic ultrasound imaging. A preliminary report was provided by [email or web address]. Dictated by: Dictated on workstation # [id number]
== END 2018-11-17 07:15 | disposition home or self-care (01) ==
LOC: EDUNIT# 04:27 → ER 04:31
DX: R10.13 Epigastric pain (principal); R93.5 Abnormal findings on diagnostic imaging of other abdominal regions, including retroperitoneum; Z90.89 Acquired absence of other organs; Z98.890 Other specified postprocedural states; Z82.49 Family history of ischemic heart disease and other diseases of the circulatory system; Z80.43 Family history of malignant neoplasm of testis
CPT/HCPCS: 36415; 74022; 74177; 80053; 81000; 82150; 82550; 82553; 83690; 83735; 83880; 84484; 84703; 85025; 85610; 85730; 93005; 93041

== ENCOUNTER → 2018-11-27 | Outpatient (CLI) | payer BC ==
[~2018-11-27] MED LIST changes: +HYOS0.1283 SL; +ONDA4TAB11 PO; +PANT40TA2 PO; +TRAM-42 PO
--- NOTE | 2018-11-27 09:32 | Diagnostic Imaging Report ---
PROCEDURE: US Gallbladder. TECHNIQUE: Multiple real-time grayscale images were obtained over the right upper quadrant in various projections. INDICATION: Epigastric pain and back pain. FINDINGS: The liver is normal in size at 17.2 cm. There is some increased echogenicity to liver suggestive of hepatic steatosis. No discrete liver mass is identified. The portal vein is patent and shows normal direction of flow. Gallbladder does contain 2 large non-mobile stones. Gallbladder wall is borderline in thickness at 3 mm. No pericholecystic fluid or biliary ductal dilatation is seen. Pancreas is poorly visualized due to bowel gas. Right kidney is unremarkable. There is no ascites. IMPRESSION: 1. Probable hepatic steatosis. 2. Cholelithiasis and gallbladder wall thickening. If there is concern for acute cholecystitis, HIDA scan can be performed. Dictated by: Dictated on workstation # [id number]
== END ==
LOC: RAD 07:55
PROVIDERS: ATTEND Surgery
DX: K80.20 Calculus of gallbladder without cholecystitis without obstruction (principal); K82.8 Other specified diseases of gallbladder
CPT/HCPCS: 76705

== ENCOUNTER 2018-12-04 05:39 | Outpatient (CLI) | payer BC ==
[~2018-12-04] VITALS: Ht 165.1 cm; Wt 117.9 kg
[2018-12-04] MEDS ORDERED: CETI10TA17 PO (10:34)
[2018-12-04] MEDS ORDERED: FERR325T18 PO (10:34)
== END 2018-12-04 10:55 | disposition home or self-care (01) ==
LOC: PREOP 05:39
PROVIDERS: ATTEND Surgery
DX: Z01.818 Encounter for other preprocedural examination (principal)

== ENCOUNTER 2018-12-07 08:17 | Day surgery (SDC) | payer BC ==
[~2018-12-07] VITALS: Ht 165.1 cm; Wt 119.5 kg
[~2018-12-07 08:17] MED LIST changes: +CETI10TA17 PO; +FERR325T18 PO
[2018-12-07] MEDS: LACTATED RINGERS 1,000 ML IV PRN ×2 (08:20→10:15)
--- OUTSIDE RECORDS SUMMARY | 2018-12-07 08:20 | XMS REPORT | Continuity of Care Document ---
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 11/17/2018 NUNO MADRID MD Ot 621.2 HYPERTROPHY OF UTERUS 11/17/2018 NUNO MADRID MD, Ot 625.8 FEM GENITAL SYMPTOMS NEC 11/17/2018 NUNO MADRID MD, Ot V72.63 PRE-PROCEDURAL LABORATORY EXAMINATION 11/17/2018 NUNO MADRID MD, Ot V72.84 EXAM PRE-OPERATIVE NOS 11/17/2018 NUNO MADRID MD, Ot V74.8 SCREEN-BACTERIAL DIS NEC 11/17/2018 WAYNE LAMBERT MD Ot 626.2 EXCESSIVE MENSTRUATION 11/17/2018 WAYNE LAMBERT MD Ot 793.5 NOSP (ABN) FINDINGS ON RADIOLOGICAL OT 11/17/2018 WAYNE LAMBERT MD, Ot 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 11/17/2018 NUNO MADRID MD Ot 621.2 HYPERTROPHY OF UTERUS 11/17/2018 NUNO MADRID MD Ot 625.8 FEM GENITAL SYMPTOMS NEC 11/17/2018 NUNO MADRID MD, Ot V72.63 PRE-PROCEDURAL LABORATORY EXAMINATION 11/17/2018 NUNO MADRID MD, Ot V72.84 EXAM PRE-OPERATIVE NOS 11/17/2018 NUNO MADRID MD, Ot V74.8 SCREEN-BACTERIAL DIS NEC 11/17/2018 LESLIE CLEMENTS DO Ot R10.13 EPIGASTRIC PAIN 11/17/2018 LESLIE CLEMENTS DO Ot R10.84 GENERALIZED ABDOMINAL PAIN 11/17/2018 LESLIE CLEMENTS DO Ot R93.5 ABN FINDINGS ON DX IMAGING OF ABD REGION 11/17/2018 LESLIE CLEMENTS DO, Ot Z80.43 FAMILY HISTORY OF MALIGNANT NEOPLASM OF 11/17/2018 LESLIE CLEMENTS DO, Ot Z82.49 FAMILY HX OF ISCHEM HEART DIS AND OTH DI 11/17/2018 LESLIE CLEMENTS DO, Ot Z90.89 ACQUIRED ABSENCE OF OTHER ORGANS 11/17/2018 LESLIE CLEMENTS DO Ot Z98.890 OTHER SPECIFIED POSTPROCEDURAL STATES 11/19/2018 LESLIE CLEMENTS DO Ot R10.13 EPIGASTRIC PAIN 11/19/2018 LESLIE CLEMENTS DO Ot R10.84 GENERALIZED ABDOMINAL PAIN 11/19/2018 LESLIE CLEMENTS DO Ot R93.5 ABN FINDINGS ON DX IMAGING OF ABD REGION 11/19/2018 LESLIE CLEMENTS DO Ot Z80.43 FAMILY HISTORY OF MALIGNANT NEOPLASM OF 11/19/2018 LESLIE CLEMENTS DO Ot Z82.49 FAMILY HX OF ISCHEM HEART DIS AND OTH DI 11/19/2018 LESLIE CLEMENTS DO Ot Z90.89 ACQUIRED ABSENCE OF OTHER ORGANS 11/19/2018 LESLIE CLEMENTS DO Ot Z98.890 OTHER SPECIFIED POSTPROCEDURAL STATES 11/25/2018 WAYNE LAMBERT MD Ot 626.2 EXCESSIVE MENSTRUATION 11/25/2018 WAYNE LAMBERT MD Ot 793.5 NOSP (ABN) FINDINGS ON RADIOLOGICAL OT 11/25/2018 WAYNE LAMBERT MD Ot 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 11/25/2018 NUNO MADRID MD, Ot 621.2 HYPERTROPHY OF UTERUS 11/25/2018 NUON MADRID MD, Ot 625.8 FEM GENITAL SYMPTOMS NEC 11/25/2018 NUNO MADRID MD, Ot V72.63 PRE-PROCEDURAL LABORATORY EXAMINATION 11/25/2018 NUNO MADRID MD, Ot V72.84 EXAM PRE-OPERATIVE NOS 11/25/2018 NUNO MADRID MD, Ot V74.8 SCREEN-BACTERIAL DIS NEC Procedures Code Description [place] [address] ROUTINE VENIPUNCTURE 08/24/2013 27950 US RENAL ULTRASOUND, LIMITED (W/RESIDUAL) 08/24/2013 38403 US PELVIC COMPL (REFLEX CPT - 63961) 08/24/2013 97497 CBC 08/24/2013 Obstetric Nuno [place] 2013 54657 TEST, URINE (IN- HOUSE) 2013 35984 ENDOMETRIAL BIOPSY 2013 37393 ROUTINE VENIPUNCTURE 01/26/2014 86308 IRON SERUM 01/26/2014 59781 IRON BNDNG CAP 01/26/2014 IRGROUP IRON GROUP (Iron,TIBC, Ferritin) 01/26/2014 Results Test Result Range Pathology Report - 12/27/16 15:35 . Comment . Comment . Comment . Comment . Comment . Comment . Comment . Comment Complete blood count (CBC) with automated white blood cell (WBC) differential - 11/17/18 04:50 Blood leukocytes automated count (number/volume) 8.4 10*3/uL 4.3-11.0 Blood erythrocytes automated count (number/volume) 5.14 10*6/uL 4.35-5.85 Venous blood hemoglobin measurement (mass/volume) 15.4 g/dL 11.5-16.0 Blood hematocrit (volume fraction) 45 % 35-52 Automated erythrocyte mean corpuscular volume 87 [foz_us] 80-99 Automated erythrocyte mean corpuscular hemoglobin (mass per erythrocyte) 30 pg 25-34 Automated erythrocyte mean corpuscular hemoglobin concentration measurement ( mass/volume) 35 g/dL 32-36 Automated erythrocyte distribution width ratio 13.2 % 10.0-14.5 Automated blood platelet count (count/volume) 268 10*3/uL 130-400 Automated blood platelet mean volume measurement 9.9 [foz_us] 7.4-10.4 Automated blood neutrophils/100 leukocytes 63 % 42-75 Automated blood lymphocytes/100 leukocytes 29 % 12-44 Blood monocytes/100 leukocytes 7 % 0-12 Automated blood eosinophils/100 leukocytes 1 % 0-10 Automated blood basophils/100 leukocytes 0 % 0-10 Blood neutrophils automated count (number/volume) 5.3 10*3 1.8-7.8 Blood lymphocytes automated count (number/volume) 2.4 10*3 1.0-4.0 Blood monocytes automated count (number/volume) 0.6 10*3 0.0-1.0 Automated eosinophil count 0.1 10*3/uL 0.0-0.3 Automated blood basophil count (count/volume) 0.0 10*3/uL 0.0-0.1 Serum or plasma choriogonadotropin ( test) detection - 11/17/18 04:50 Serum or plasma choriogonadotropin ( test) detection NEGATIVE NEGATIVE PT panel in platelet poor plasma by coagulation assay - 11/17/18 04:50 Prothrombin time (PT) in platelet poor plasma by coagulation assay 13.4 s 12.2-14.7 INR in platelet poor plasma or blood by coagulation assay 1.0 0.8-1.4 Activated partial thromboplastin time (aPTT) in platelet poor plasma bycoagulation assay - 11/17/18 04:50 Activated partial thromboplastin time (aPTT) in platelet poor plasma bycoagulation assay 37 s 24-35 Comprehensive metabolic panel - 11/17/18 04:50 Serum or plasma sodium measurement (moles/volume) 137 mmol/L 135-145 Serum or plasma potassium measurement (moles/volume) 3.6 mmol/L 3.6-5.0 Serum or plasma chloride measurement (moles/volume) 102 mmol/L 98-107 Carbon dioxide 22 mmol/L 21-32 Serum or plasma anion gap determination (moles/volume) 13 mmol/L 5-14 Serum or plasma urea nitrogen measurement (mass/volume) 15 mg/dL 7-18 Serum or plasma creatinine measurement (mass/volume) 1.12 mg/dL 0.60-1.30 Serum or plasma urea nitrogen/creatinine mass ratio 13 NRG Serum or plasma creatinine measurement with calculation of estimated glomerular filtration rate 54 NRG Serum or plasma glucose measurement (mass/volume) 124 mg/dL 70-105 Serum or plasma calcium measurement (mass/volume) 9.9 mg/dL 8.5-10.1 Serum or plasma total bilirubin measurement (mass/volume) 0.4 mg/dL 0.1-1.0 Serum or plasma alkaline phosphatase measurement (enzymatic activity/volume) 49 U/L 40-136 Serum or plasma aspartate aminotransferase measurement (enzymatic activity/ volume) 15 U/L 5-34 Serum or plasma alanine aminotransferase measurement (enzymatic activity/volume ) 20 U/L 0-55 Serum or plasma protein measurement (mass/volume) 8.5 g/dL 6.4-8.2 Serum or plasma albumin measurement (mass/volume) 4.4 g/dL 3.2-4.5 CALCIUM CORRECTED 9.6 mg/dL 8.5-10.1 Magnesium - 11/17/18 04:50 Magnesium 2.3 mg/dL 1.8-2.4 Serum or plasma creatine kinase measurement (enzymatic activity/volume) - 11/17 04:50 Serum or plasma creatine kinase measurement (enzymatic activity/volume) 37 U/L 29-168 Serum or plasma creatine kinase MB measurement (enzymatic activity/volume) - 04:50 Serum or plasma creatine kinase MB measurement (enzymatic activity/volume) 0.4 ng/mL <6.6 Serum or plasma troponin i.cardiac measurement (mass/volume) - 11/17/18 04:50 Serum or plasma troponin i.cardiac measurement (mass/volume) < ng/ mL <0.028 Serum or plasma amylase measurement (enzymatic activity/volume) - 11/17/18 04: 50 Serum or plasma amylase measurement (enzymatic activity/volume) 49 U /L 25-125 Lipase - 11/17/18 04:50 Lipase 25 U/L 8-78 Serum or plasma lithium measurement (moles/volume) - 11/17/18 04:50 BNP level < pg/mL <100.0 Complete urinalysis with reflex to culture - 11/17/18 06:20 Urine color determination YELLOW NRG Urine clarity determination CLEAR NRG Urine pH measurement by test strip 7 5-9 Specific gravity of urine by test strip 1.005 1.016- 1.022 Urine protein assay by test strip, semi-quantitative NEGATIVE NEGATIVE Urine glucose detection by automated test strip NEGATIVE NEGATIVE Erythrocytes detection in urine sediment by light microscopy NEGATIVE NEGATIVE Urine ketones detection by automated test strip NEGATIVE NEGATIVE Urine nitrite detection by test strip NEGATIVE NEGATIVE Urine total bilirubin detection by test strip NEGATIVE NEGATIVE Urine urobilinogen measurement by automated test strip (mass/volume) NORMAL NORMAL Urine leukocyte esterase detection by dipstick NEGATIVE NEGATIVE Automated urine sediment erythrocyte count by microscopy (number/high power field) NONE NRG Automated urine sediment leukocyte count by microscopy (number/high power field ) NONE NRG Bacteria detection in urine sediment by light microscopy TRACE NRG Squamous epithelial cells detection in urine sediment by light microscopy 2-5 NRG Crystals detection in urine sediment by light microscopy NONE NRG Casts detection in urine sediment by light microscopy NONE NRG Mucus detection in urine sediment by light microscopy NEGATIVE NRG Complete urinalysis with reflex to culture NO NRG Encounters ACCT No. Visit Date/Time Discharge Status Pt. Type Provider Facility Loc./Unit Complaint [id number] 03/04/2014 12:47:00 03/04/2014 23:59:59 CLS Outpatient MAVERICK PINZON APRN [id number] 01/26/2014 11:11:00 01/26/2014 23:59:59 CLS Outpatient WAYNE ALMBERT MD [id number] 2013 14:48:00 2013 23:59:59 CLS Outpatient WAYNE LAMBERT MD [id number] 08/24/2013 10:09:00 08/24/2013 23:59:59 [place] [id number] 11/29/2018 12:35:00 11/29/2018 23:59:59 CLS Outpatient [facility] [id number] 12/04/2018 05:39:00 12/04/2018 10:55:00 DIS Outpatient ROJELIO GARCIA DO [facility] PREOP CHOLELITHIASIS [id number] 11/27/2018 07:55:00 11/27/2018 23:59:59 CLS Outpatient ROJELIO GARCIA DO [facility] RAD EPIGASTRIC ABD PAIN,BACK PAIN [id number] 11/17/2018 04:31:00 11/17/2018 07:15:00 DIS Emergency STARRLESLIE Haddad DO [facility] ER CP,UPPER ABD PAIN ALL THE WAY TO THE BACK [id number] 01/03/2014 06:49:00 01/06/2014 10:35:00 DIS Outpatient NUNO MADRID MD [facility] SDC COMPLEX UTERINE MASS [id number] 12/27/2013 15:23:00 12/27/2013 23:59:59 CLS Outpatient NUNO MADRID MD [facility] PREOP COMPLEX UTERINE MASS [id number] 11/25/2013 09:00:00 11/25/2013 23:59:59 CLS Outpatient NUNO MADRID MD [facility] RAD UTERINE PELVIC MASS [id number] 09/01/2013 13:33:00 09/01/2013 23:59:59 CLS Outpatient WAYNE LAMBERT MD [facility] RAD FAM HX PCKD,MENORHAGGIA [id number] 12/04/2018 12:00:00 PEN Preadmit ROJELIO GARCIA DO [facility] CARD EPIGASTRIC ABD PAIN,BACK PAIN [id number] 01/04/2017 00:08:00 Document Registration
[2018-12-07 08:45] VITALS: BP 135/104
[2018-12-07] MEDS ORDERED: MIDAZOLAM 2 MG/2 ML (VERSED) VIAL IV ONE (09:00)
[2018-12-07] MEDS ORDERED: FAMOTIDINE 20MG/2ML IV (PEPCID) IV ONE (09:00)
[2018-12-07] MEDS ORDERED: SCOPOLAMINE 1.5 MG (TRANSDERM-SCOP) PATCH TOP ONE (09:00)
[2018-12-07] MEDS ORDERED: ONDANSETRON 4 MG/2 ML (SDV) Z0FRAN IV ONE (09:00)
[2018-12-07] MEDS ORDERED: ceFAZolin 2 GM IV Premixed 50 ML IV ONE (09:00)
[2018-12-07] MEDS ORDERED: LIDOCAINE 1% INJ 20 ML 20 ML VIAL ONE (09:32)
[2018-12-07] MEDS ORDERED: IOPAMIDOL 61% 30 ML (ISOVUE 300) VIAL IV ONE (09:32)
[2018-12-07] MEDS ORDERED: BUP/EPI 0.5% 1:200,000 (SENSORCAINE) 30 ML VIAL ONE (09:32)
--- NOTE | 2018-12-07 09:32 | Progress Note-Pre Operative ---
Pre-Operative Progress Note H&P Reviewed The H&P was reviewed, patient examined and no changes noted. Time Seen by Provider: 09:28 Date H&P Reviewed: Dec 07, 2018 Time H&P Reviewed: 09:29 Pre-Operative Diagnosis: cholelithiasis/cholecystitis ROJELIO GARCIA DO Dec 07, 2018 09:32
[2018-12-07] MEDS ORDERED: fentaNYL INJECTION 100 MCG/2 ML AMP ONE ×2 (09:43→10:48)
--- NOTE | 2018-12-07 10:44 | Progress Note-Post Operative ---
Post-Operative Progess Note Surgeon (s)/Straight Edger (s) Surgeon ROJELIO GARCIA DO Straight Edger: Victor Hugo Pre-Operative Diagnosis cholelithiasis/cholecystitis Post-Operative Diagnosis same Procedure & Operative Findings Date of Procedure 12/07/18 Procedure Performed/Findings Lap santino with IOC Anesthesia Type GET Estimated Blood Loss Estimated blood loss (mL): scant Specimens/Packing Specimens Removed GB and contents ROJELIO GARCIA DO Dec 07, 2018 10:44
[2018-12-07] MEDS ORDERED: GLYCOPYRROLATE 0.2 MG/ML (ROBINUL) 2 ML VIAL ONE ×2 (10:46)
[2018-12-07] MEDS ORDERED: LIDOCAINE PF 2% 5 ML (XYLOCAINE) VIAL ONE (10:46)
[2018-12-07] MEDS ORDERED: PHENYLEPHRINE 100 MCG/ML 10 ML (ANESTHESIA) SYR ONE (10:46)
[2018-12-07] MEDS ORDERED: DESFLURANE (SUPRANE) 15 ML INHAL SOLN ONE (10:46)
[2018-12-07] MEDS ORDERED: LACTATED RINGERS 1,000 ML IV ONE (10:46)
[2018-12-07] MEDS ORDERED: SEVOFLURANE (ULTANE) 15 ML INHAL SOLN ONE ×2 (10:46)
[2018-12-07] MEDS ORDERED: proPOfol 200 MG/20 ML (DIPRIVAN) VIAL IV ONE (10:46)
[2018-12-07] MEDS ORDERED: NEOSTIGMINE 1 MG/ML 5 ML SYRINGE ONE (10:46)
[2018-12-07] MEDS ORDERED: ACHD5005 PO (10:46)
[2018-12-07] MEDS ORDERED: ROCURONIUM 10 MG/ML 5 ML SYRINGE IV ONE (10:46)
--- NOTE | 2018-12-07 10:47 | Discharge Inst-Surgical ---
Discharge Inst-Surgical Depart Medication/Instructions New, Converted or Re-Newed RX: RX Given to Pt/Family Patient Instructions Follow up Appt: Make appointment for 1 week. [phone] Instructions: No lifting greater than 20 pounds. No strenuous activity. May shower in 24 hours, no tub bath or soaking. Use incentive spirometer at home as directed. No Smoking Skin/Wound Care: May remove bandages in am. You need to leave the Dermabond on incision it will fall off on it's own. Symptoms to Report: Appetite Changes, Extremity Discoloration, Numbness/Tingling, Swelling Increased , Bleeding Excessive, Eyesight Changes, Pain Increased, Urine Color Change, Constipation(Persistent), Fever over 101 degree F, Pain/Pressure in chest, Urinating Difficulty, Cough Up/Vomit Blood, Heart Beat Irreg/Pounding, Pain/ Pressure in jaw, Cramps in feet or legs, Lightheadedness, Pain/Pressure in shoulder, Diarrhea(Persistent), Memory Changes Suddenly, Questions/Concerns, Weight gain consecutive days, Dizziness/Fainting, Nausea/Vomiting, Shortness of Breath, Weight gain over 2 pounds If questions or concerns contact your physician Or seek help at emergency department. Activity Activity as Tolerated: Yes Activity Instructions: Avoid Stress to Incision Driving Instructions: No Driving/Refer to Diet Discharge Diet: Avoid Fatty Foods, Low Fat/Low Cholesterol If Any Problems/Questions/Issu: Contact Your Physician, Go to Emergency Room Skin/Wound Care Infection Signs and Symptoms: Increased Redness, Foul Odor of Wound, Increased Drainage, Skin Itchy or Has a Rash, Increased Swelling, Temperature Above 101 F Wound Care Comment: Heating pad to shoulder or neck tonight for pain Bathing Instructions: Shower Stitches/Malika/Dermabond Dis: Dermabond Ice Pack: Ice On and Off Site ROJELIO GARCIA DO Dec 07, 2018 10:47
[2018-12-07] MEDS ORDERED: morphine INJ 10 MG/ML 1ML (SYR OR VIAL) IVP ONE (11:15)
[2018-12-07] MEDS ORDERED: ONDANSETRON 4 MG/2 ML (SDV) Z0FRAN IVP PRN (11:15)
[2018-12-07 11:55] VITALS: BP 145/90
[2018-12-07 12:25] VITALS: BP 146/83
[2018-12-07] MEDS ORDERED: PROMETHAZINE INJ 25 MG/ML (PHENERGAN) AMP ONE (12:29)
[2018-12-07] MEDS ORDERED: PROMETHAZINE INJ 25 MG/ML (PHENERGAN) AMP IVP ONE (12:30)
[2018-12-07 12:55] VITALS: BP 146/90
--- NOTE | 2018-12-07 13:36 | Diagnostic Imaging Report ---
INDICATION: Fluoroscopy for intraoperative cholangiogram. FINDINGS: Fluoroscopy was provided for Dr. Wheeler during intraoperative cholangiogram. 25 seconds of fluoroscopy was utilized. Images demonstrate contrast being injected into the cystic duct remnant. The intrahepatic and extrahepatic bile ducts are opacified. No filling defects are seen to suggest retained stone. IMPRESSION: Fluroscopy during intraoperative cholangiogram. Dictated by: Dictated on workstation # [id number]
--- NOTE | 2018-12-07 14:13 | Anesthesia-General Post-Op ---
General Patient Condition Mental Status/LOC: Same as Preop Cardiovascular: Satisfactory Nausea/Vomiting: Present (being treated by RN) Respiratory: Satisfactory Pain: Controlled Complications: Absent Post Op Complications Complications None Follow Up Care/Instructions Patient Instructions None needed. Anesthesia/Patient Condition Patient Condition Patient is doing well, no complaints, stable vital signs, no apparent adverse anesthesia problems. No complications reported per nursing. PARMINDER MIGUEL CRNA Dec 07, 2018 14:13
--- NOTE | 2018-12-08 04:40 | OPERATIVE REPORT ---
DATE OF SERVICE: PREOPERATIVE DIAGNOSIS: Chronic cholecystitis, cholelithiasis. POSTOPERATIVE DIAGNOSIS: Chronic cholecystitis, cholelithiasis. PROCEDURE: Laparoscopic cholecystectomy, intraoperative cholangiogram. SURGEON: Clarence Wheeler DO. HUMAN FACTORS ERGONOMIST: Willian Gay DO. ANESTHESIA: General endotracheal tube. SPECIMEN: Gallbladder and contents. BLOOD LOSS: Scant. FLUIDS: Per anesthesia. POSTOPERATIVE CONDITION: Stable. INDICATION FOR PROCEDURE: The patient is a 38-year-old female who has been having abdominal pain, mostly in the right upper quadrant and had an ultrasound that showed stones. FINDINGS: The patient actually had a mildly erythematous gallbladder with adhesions to it and she had some edema while we were taking the gallbladder off partially acute gallbladder. No stones in the common bile duct. DESCRIPTION OF PROCEDURE: After informed consent was obtained, the patient was brought to the operating room, placed on the table in supine position. She was sterilely prepped and draped in normal fashion. Local lidocaine was used to infiltrate the skin above the umbilicus. Made incision with #11 blade, carried down through skin and subcutaneous tissue, then deepened down through subcutaneous tissue with Bovie electrocautery down to fascia. Fascia incised with Bovie electrocautery, bluntly entered the abdomen, swept a finger around, placed 0 Vicryl aobsvu-sp-xshau suture and placed 11 mm trocar port under direct visualization, created pneumoperitoneum and then placed 3 more ports in normal fashion using local lidocaine, 11 blade for stab incision and Versed system, all under direct visualization, one subxiphoid, two in the right upper quadrant. The patient then placed in reverse Trendelenburg, rotated left, able to grasp the gallbladder at the fundus, looked little bit erythematous, taken in superior direction. There were some adhesions of this. Pictures were taken and then these adhesions were carefully taken down with Bovie electrocautery as well as blunt dissection. Once we able to get down to Mark's pouch, able to grasp Mark's pouch and pulled in the inferolateral direction and start dissecting out cystic duct and cystic artery, able to get around the cystic duct and cystic artery, placed one clip distally on the cystic duct and one distally and one proximally on the cystic artery and then cut the cystic duct mcfp through Metzenbaum scissors, placed a cholangiogram catheter, shot a cholangiogram, good spillage of dye down the common bile duct into the small intestine as well as up into common hepatic and right and left hepatics. At this point, then removed the cholangiogram catheter, placed two clips proximally on the cystic duct and then cut the cystic duct with Metzenbaum scissors, then cut the cystic artery as well, then removed the gallbladder from bed of liver with L-hook cautery, which was completely removed, placed a bag in the abdomen, placed the gallbladder in the bag and removed through the supraumbilical incision. Placed the port back in the abdomen, copiously irrigated with normal saline, suctioned this out, controlled bleeding, to make sure there is no bleeding at the bed of liver and at this point, placed the patient supine, suctioned out all fluid, removed all ports under direct visualization, the pneumoperitoneum to escape as well as suctioned it out. I then closed the supraumbilical incision, closing the fascia with 0 Vicryl suture previously placed. Copiously irrigated all incisions with normal saline, closed the 3 small 5 mm incisions with single interrupted 4-0 undyed Monocryl subcuticular stitch, closed the supraumbilical incision with 3 interrupted 4-0 undyed Monocryl subcuticular stitches. Area was cleaned and dried and Dermabond placed as well as bandage. The patient then transferred to recovery room in stable condition. Sponge and needle count correct at the end of the case. Dr. Gay assisted in this case helping to make incisions, closed incisions as well as identify anatomy and hold anatomy out of the way. Job ID: [id number] DocumentID: [id number] Dictated Date: 12/07/2018 17:05:38 Dust Collector Ore Crushing Date: 12/08/2018 04:39:38 Dictated By: CLARENCE WHEELER DO
== END 2018-12-07 13:35 | disposition home or self-care (01) ==
LOC: SDC 08:17
PROVIDERS: ATTEND Surgery
DX: K80.10 Calculus of gallbladder with chronic cholecystitis without obstruction (principal); Z11.2 Encounter for screening for other bacterial diseases; E66.01 Morbid (severe) obesity due to excess calories; Z79.899 Other long term (current) drug therapy; Z68.41 Body mass index [BMI] 40.0-44.9, adult
CPT/HCPCS: 84703; 87081

== ENCOUNTER 2019-06-16 06:13 | Outpatient (CLI) | payer BC ==
[~2019-06-16] VITALS: Ht 165.1 cm; Wt 120.3 kg
[~2019-06-16 06:13] MED LIST changes: +ACHD5005 PO
[2019-06-16] MEDS ORDERED: MAGN400T39 PO (15:04)
== END 2019-06-16 15:09 | disposition home or self-care (01) ==
LOC: PREOP 06:13
PROVIDERS: ATTEND Specialist
DX: Z01.818 Encounter for other preprocedural examination (principal)

== ENCOUNTER 2019-06-18 09:50 | Day surgery (SDC) | payer BC ==
[~2019-06-18] VITALS: Wt 120.3 kg
[~2019-06-18 09:50] MED LIST changes: +MAGN400T39 PO
[2019-06-18 09:55] VITALS: BP 138/80
[2019-06-18] MEDS ORDERED: POVIDONE (BETADINE) OPHTH SOLN 5% 30 ML OP ONE (10:00)
[2019-06-18] MEDS ORDERED: TIMOLOL MALEATE 0.5% 5 ML (TIMOPTIC) BTL OU PRN (10:00)
[2019-06-18] MEDS ORDERED: LIDOCAINE PF 1% 2 ML AMP IR PRN (10:00)
[2019-06-18] MEDS ORDERED: MOXIFLOXACIN OPHTH SOLN 5 MG/ML 0.3 ML SYRINGE OP ONE (10:00)
[2019-06-18] MEDS: TETRACAINE 0.5% OPHTH SOLN 4 ML BTL (SINGLE DOSE ONLY) OU PRN ×4 (10:21→10:38)
[2019-06-18] MEDS: PHENYLEPHRINE 10% OPHTH (NEO-SYN) 5 ML BTL OU SCH ×3 (10:28→10:38)
[2019-06-18] MEDS: CYCLOPENTOLATE 1% (CYCLOGYL) 2 ML DROPS OP SCH ×3 (10:28→10:38)
[2019-06-18] MEDS ORDERED: MIDAZOLAM 2 MG/2 ML (VERSED) VIAL ONE (10:39)
--- NOTE | 2019-06-18 10:41 | Ophthalmologist Pre-Op Note ---
Pre-Operative Progress Note H&P Reviewed The H&P was reviewed, patient examined and no changes noted. Date H&P Reviewed: Jun 18, 2019 Time H&P Reviewed: 10:41 Pre-Op Dx Cataract, Left Eye MARIBELL HERNANDEZ MD Jun 18, 2019 10:41
[2019-06-18 11:17] VITALS: BP 147/97
[2019-06-18] MEDS ORDERED: acetaZOLAMIDE ER 500 MG CAP (DIAMOX SEQUELS) PO ONE (12:00)
--- NOTE | 2019-06-30 02:34 | OPERATIVE REPORT ---
DATE OF SERVICE: 06/18/2019 PREOPERATIVE DIAGNOSIS: Cataract, left eye. POSTOPERATIVE DIAGNOSIS: Cataract, left eye. ANESTHESIA: Topical with IV sedation. COMPLICATIONS: None. DESCRIPTION OF PROCEDURE: An informed consent was obtained from the patient and placed on her chart. Her left pupil was dilated and she was taken to the operating room and placed in a supine position on the operating table. She was prepped and draped in the usual sterile fashion. She was sedated by the anesthesia provider. Attention was directed to the patient's left eye and a wire lid speculum was placed. A paracentesis was made at the left hand position. Preservative-free lidocaine was injected into the anterior chamber followed by viscoelastic. A clear corneal incision was then made in the temporal position. A capsulorrhexis was performed and the central nuclear and cortical material were removed. The posterior capsule was polished. An Atif [id number] 18.0 diopter lens was placed into the capsular bag. The residual viscoelastic was aspirated and balanced salt saline was injected into the anterior chamber. Moxifloxacin was injected into the anterior chamber. The wound was checked and found to be watertight. The patient tolerated the procedure well without complications. Job ID: [id number] DocumentID: [id number] Dictated Date: 06/29/2019 17:15:01 Reservation Manager Date: 06/29/2019 23:53:22 Dictated By: MARIBELL HERNANDEZ MD
== END 2019-06-18 11:17 | disposition home or self-care (01) ==
LOC: SDC 09:50
PROVIDERS: ATTEND Specialist
DX: H25.12 Age-related nuclear cataract, left eye (principal); E66.01 Morbid (severe) obesity due to excess calories; Z83.511 Family history of glaucoma; Z83.3 Family history of diabetes mellitus; Z79.899 Other long term (current) drug therapy; Z90.49 Acquired absence of other specified parts of digestive tract
CPT/HCPCS: 84703

== ENCOUNTER 2019-10-19 05:50 | Outpatient (CLI) | payer BC ==
[~2019-10-19] VITALS: Ht 165.1 cm; Wt 120.3 kg
== END 2019-10-19 12:19 | disposition home or self-care (01) ==
LOC: PREOP 05:50
PROVIDERS: ATTEND Specialist
DX: Z01.818 Encounter for other preprocedural examination (principal)

== ENCOUNTER 2019-10-22 07:55 | Day surgery (SDC) | payer BC ==
[~2019-10-22] VITALS: Ht 165 cm; Wt 120.3 kg
[2019-10-22 08:00] VITALS: BP 137/86
[2019-10-22] MEDS: TETRACAINE 0.5% OPHTH SOLN 4 ML BTL (SINGLE DOSE ONLY) OU PRN ×2 (08:12→08:24)
[2019-10-22] MEDS ORDERED: PHENYLEPHRINE 10% OPHTH (NEO-SYN) 5 ML BTL OU PRN (08:15)
[2019-10-22] MEDS ORDERED: TROPICAMIDE 1% OPH SOLN (MYDRIACYL) 15 ML BTL OU PRN (08:15)
[2019-10-22 08:50] VITALS: BP 137/86
--- NOTE | 2019-10-22 09:04 | Ophthalmologist Pre-Op Note ---
Pre-Operative Progress Note H&P Reviewed The H&P was reviewed, patient examined and no changes noted. Date H&P Reviewed: Oct 22, 2019 Time H&P Reviewed: 08:33 Pre-Op Dx Secondary Cataract, Bilateral Eyes MARIBELL HERNANDEZ MD Oct 22, 2019 09:04
--- NOTE | 2019-10-22 09:05 | Ophthalmology Operative Report ---
YAG Capsulotomy PREOPERATIVE DIAGNOSIS: Secondary Cataract Bilateral POSTOPERATIVE DIAGNOSIS: Secondary Cataract Bilateral PROCEDURE: YAG Capsulotomy, Bilateral SURGEON: Harjinder Hernandez ANESTHESIA: Topical anesthesia COMPLICATIONS: None ESTIMATED BLOOD LOSS: Minimal DESCRIPTION OF PROCEDURE: After proper informed consent was obtained, the patient's, a 39 female , received one drop of Tropicamide and one drop of Tetracaine in each eye. The patient was then placed at the YAG laser and using a power of [2.8 ] millijoules and bursts [ 11] right eye and [ 10] left eye were used to fashion a central capsulotomy. The patient tolerated the procedure well without complications. HARJINDER HERNANDEZ MD Oct 22, 2019 09:05
== END 2019-10-22 08:50 | disposition home or self-care (01) ==
LOC: SDC 07:55
PROVIDERS: ATTEND Specialist
DX: H26.493 Other secondary cataract, bilateral (principal); Z83.511 Family history of glaucoma; Z83.3 Family history of diabetes mellitus

== ENCOUNTER 2021-10-24 20:14 | Emergency (ER) | payer BC ==
[~2021-10-24] VITALS: Ht 165.1 cm; Wt 110.7 kg
--- NOTE | 2021-10-24 21:10 | ED Cough/URI ---
General Chief Complaint: COVID19 Suspect/Confirmed Stated Complaint: COUGH, CONGESTION, SORE THROAT, SOA Nursing Triage Note: PT ARRIVED BY PRIVATE VEHICLE WITH CHIEF COMPLAINT OF COUGH AND SOB. PT WAS ALERT, ORIENTED X 4 AND AMBULATORY. PT STATED HER COUGH STARTED LAST WEEK AND HER SOB STARTED TO DAY. PT IS NOT AWARE OF ANY COVID EXPOSURE. PT IS NOT VACCINATED FOR COVID. PT HAS BEEN TAKING MUCINEX AND NYQUIL. PT DOES NOT TAKE ANY OTHER MEDICATIONS. PT'S LMP WAS 10/14/2021 AND DENIES THE CHANCE OF . PT DENIES ALLERGIES, SMOKING, ALCOHOL OR DRUG USE. VITALS WERE DONE, PT WAS SWABBED FOR COVID/FLU. REPORT WAS GIVEN TO PROVIDER. Source: patient Exam Limitations: no limitations (RELL SANTANA) History of Present Illness Date Seen by Provider: Oct 24, 2021 Time Seen by Provider: 20:45 Initial Comments Patient is a 41yoF without significant medical history who presents via private vehicle with cc of cough and SOA. She has been feeling bad since Friday with congestion, mild headache, cough and some diarrhea. This afternoon she began getting short of breath which prompted her to come to ED. She has sore stomach and back muscles from coughing and feels nauseous with intense coughing fits. She has not had fevers at home but has temp of 100.6F today in ED. She has been taking Nyquil Cold and Flu which helps. Patient takes no regular medications. She is unvaccinated and denies sick contacts. 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 Timing/Duration: getting worse Severity/Quality: moderate Associated Symptoms: cough, dizziness, nasal congestion, shortness of breath (RELL SANTANA) Allergies and Home Medications Allergies Coded Allergies: No Known Drug Allergies (Unverified , 12/07/18) Patient Home Medication List Home Medication List Reviewed: Yes (KRISHNA RODRÍGUEZ MD) Cetirizine HCl (Cetirizine HCl) 10 Mg Tablet, 10 MG PO DAILY, (Reported) Entered as Reported by: ADRIANA LEE on 12/04/18 1034 Ferrous Sulfate (Ferrous Sulfate) 325 Mg Tablet, 325 MG PO BID, (Reported) Entered as Reported by: ADRIANA LEE on 12/04/18 1034 Guaifenesin/Codeine (Robitussin Ac (Codeine) Syrup) 10 Ml Syrp, 10 ML PO Q6H PRN for cough Prescribed by: KRISHNA RODRÍGUEZ on 10/24/21 2201 Magnesium Oxide (Magnesium) 400 Mg Tablet, 400 MG PO DAILY, (Reported) Entered as Reported by: ADRIANA LEE on 06/16/19 1504 Review of Systems Review of Systems Constitutional: No chills, No diaphoresis; dizziness; No weakness EENTM: nose congestion, throat pain; No ear pain, No blurred vision, No vision loss Respiratory: cough, short of breath; No wheezing Cardiovascular: No edema, No palpitations, No syncope Gastrointestinal: No abdominal pain; diarrhea; No heartburn, No loss of appetite, No vomiting Genitourinary: No dysuria, No frequency, No hematuria Musculoskeletal: back pain, muscle pain Skin: no symptoms reported Psychiatric/Neurological: No Symptoms Reported Hematologic/Lymphatic: No Symptoms Reported ([employer] STUDENT) Past Fgsnwbo-Wsfqlz-Btcgpv Hx Patient Social History Tobacco Use?: No Smoking Status: Never a Smoker Substance use?: No Alcohol Use?: No Pt feels they are or have been: No (ISIAlminderPreetMass[employer]Ed STUDENT) Immunizations Up To Date First/Initial COVID19 Vaccinat: N/A Second COVID19 Vaccination Marco Antonio: N/A Third COVID19 Vaccination Date: N/A COVID19 Vaccine Carpet Renovator: N/A (SureDone) Seasonal Allergies Seasonal Allergies: Yes (Dovme KosmeticsPreetMassBioEd STUDENT) Past Medical History Surgeries: Yes (elbow sx, uterine fibriod removed) Orthopedic, Tonsillectomy Respiratory: No Cardiac: No Neurological: No Reproductive Disorders: Yes (COMPLEX MASS IN UTERUS) Genitourinary: No Gastrointestinal: Yes Gall Bladder Disease Musculoskeletal: Yes (RIGHT ELBOW DISLOCATION WITH SURGERY) Endocrine: No HEENT: No Cancer: No Psychosocial: No Integumentary: No Blood Disorders: Yes (ANEMIA) (Dov[employer] KosmeticsPreetRELL [employer] STUDENT) Family Medical History Cancer 09 BROTHER (TESTICULAR) Family history: Diabetes mellitus 03 FATHER Family history: Hypertension 03 FATHER 03 MOTHER Kidney disease 03 FATHER No Family History of: Abdominal aortic aneurysm Alcoholism Cancer of colon Dementia Family history: Alzheimer's disease Family history: Arthritis Family history: Asthma Family history: Cardiovascular disease Family history: Gastrointestinal disease Family history: Thyroid disorder Hereditary disease History of - respiratory disease Myocardial infarction Parkinson's disease Prostate cancer Psychotic disorder Seizure disorder Stroke Physical Exam Vital Signs - First Documented (KRISHNA RODRÍGUEZ MD) Capillary Refill : Less Than 3 Seconds ([facility]ITALiKa[facility] Pvt LtdANDA [employer] STUDENT) Height: 5'5.00" Weight: 263lbs. 8.0oz. 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, no motor/sensory deficits, alert, normal mood/affect, oriented x 3 Skin: normal color, warm/dry Lymphatic: no adenopathy ([employer]DA [employer] STUDENT) Progress/Results/Core Measures Suspected Sepsis SIRS Temperature: Pulse: 98 Respiratory Rate: 24 Blood Pressure 127 /94 Mean: 105 (BloggerceRELL [employer] STUDENT) Results/Orders Lab Results Laboratory Tests Test 10/24/21 20:43 Range/Units Influenza Type A (RT-PCR) Not Detected Not Detecte Influenza Type B (RT-PCR) Not Detected Not Detecte SARS-CoV-2 RNA (RT-PCR) Detected H Not Detecte (KRISHNA RODRÍGUEZ MD) My Orders Orders - KRISHNA RODRÍGUEZ MD Covid 19 Inhouse Test (10/24/21 20:47) Influenza A And B By Pcr (10/24/21 20:47) Isolation Central Supply Req (10/24/21 20:47) Guaifenesin/Codeine Syrup (Robitussin Ac (10/24/21 21:46) Acetaminophen Tablet (Tylenol Tablet) (10/24/21 22:00) (KRISHNA RODRÍGUEZ MD) Medications Given in ED (KRISHNA RODRÍGUEZ MD) Vital Signs/I&O 10/24/21 10/24/21 10/24/21 20:50 20:50 22:10 Temp 38.1 Pulse 98 93 Resp 24 22 B/P (MAP) 127/94 (105) 153/84 Pulse Ox 97 95 O2 Delivery Room Air Room Air Room Air (KRISHNA RODRÍGUEZ MD) Vital Signs/I&O Capillary Refill : Less Than 3 Seconds (RELL SANTANA MED STUDENT) Blood Pressure Mean: 105 Progress Note : Time: 22:01 Progress Note 41-year-old female sick for about 1 week, congestion, cough, posttussive nausea/emesis, diarrhea. Mild headache. Taking NyQuil at home for symptoms last dose this morning. Non-smoker, no chronic medical conditions. Unv accinated. Physical exam unremarkable for any acute pathology Assessment positive for COVID. Home with supportive care, return precautions given. (KRISHNA RODRÍGUEZ MD) Departure Impression Primary Impression: COVID-19 Disposition: 01 HOME, SELF-CARE Condition: Stable Departure-Patient Inst. Decision time for Depature: 22:02 (KRISHNA RODRÍGUEZ MD) Referrals: [facility] [place] Primary Care Physician Patient Instructions: COVID-19 (DC) Add. Discharge Instructions: Drink plenty of fluids to stay well-hydrated. I have sent a prescription for Robitussin with codeine syrup to [facility]. You can take 1 to 2 teaspoons every 6 hours as needed for cough/congestion. Thzi-tcp-liqpjfj Tylenol and/or ibuprofen as needed for fever and body aches. Check your oxygen level with a portable oxygen monitor that you can obtain at your pharmacy or [facility] [employer]. If you notice increasing shortness of breath and numbers decreasing below 90% you need to come back to the emergency room. Follow-up with your primary care provider in 2 weeks Scripts Guaifenesin/Codeine (ROBITUSSIN AC (CODEINE) SYRUP) 10 Ml Syrp 10 ML PO Q6H PRN for cough, #120 ML Prov: KRISHNA RODRÍGUEZ MD 10/24/21 Work/School Note: Work Release Form Date Seen in the Emergency Department: Oct 24, 2021 Return to Work: Oct 29, 2021 Verification and Attestation of Medical Student E/M Service A medical student performed and documented this service in my presence. I reviewed and verified all information documented by the medical student and made modifications to such information, when appropriate. I personally performed the physical exam and medical decision making. Krishna Rodríguez, Oct 24, 2021,22:03 (KRISHNA RODRÍGUEZ MD) RELL SANTANA MED STUDENT Oct 24, 2021 21:10 KRISHNA RODRÍGUEZ MD Oct 24, 2021 22:04
[2021-10-24] MEDS ORDERED: guaiFENesin/CODEINE (ROBITUSSIN AC) 10ML UDC PO STA (21:46)
[2021-10-24] MEDS ORDERED: ACETAMINOPHEN 500 MG TAB (TYLENOL) PO ONE (22:00)
[2021-10-24] MEDS ORDERED: GFCD10B PO (22:01)
[2021-10-24 22:10] VITALS: BP 153/84
== END 2021-10-24 22:10 | disposition home or self-care (01) ==
LOC: EDUNIT# 20:14 → ER 20:16
DX: U07.1 COVID-19 (principal); E66.9 Obesity, unspecified; Z68.41 Body mass index [BMI] 40.0-44.9, adult
CPT/HCPCS: 87636; 99283

== ENCOUNTER 2022-04-13 20:12 | Emergency (ER) | payer BC ==
[~2022-04-13] VITALS: Ht 165 cm; Wt 113.0 kg
[~2022-04-13 20:12] MED LIST changes: +GFCD10B PO
[2022-04-13 20:37] LABS: BASOPHILS # (AUTO) 0.1 10^3/uL (0.0-0.1); BASOPHILS % (AUTO) 0 % (0-10); EOSINOPHILS # (AUTO) 0.1 10^3/uL (0.0-0.3); EOSINOPHILS % (AUTO) 1 % (0-10); HEMATOCRIT 43 % (35-52); HEMOGLOBIN 14.8 g/dL (11.5-16.0); LYMPHOCYTES # (AUTO) 2.8 10^3/uL (1.0-4.0); LYMPHOCYTES % (AUTO) 18 % (12-44); MEAN CORPUSCULAR HEMOGLOBIN 29 pg (25-34); MEAN CORPUSCULAR HGB CONC 34 g/dL (32-36); MEAN CORPUSCULAR VOLUME 86 fL (80-99); MEAN PLATELET VOLUME 9.5 fL (9.0-12.2); MONOCYTES # (AUTO) 0.9 10^3/uL (0.0-1.0); MONOCYTES % (AUTO) 6 % (0-12); NEUTROPHILS # (AUTO) 11.4 10^3/uL (1.8-7.8); NEUTROPHILS % (AUTO) 75 % (42-75); PLATELET COUNT 286 10^3/uL (130-400); WHITE BLOOD COUNT 15.3 10^3/uL (4.3-11.0)
[2022-04-13] MEDS ORDERED: NS IV 1000 ML 1,000 ML IV STA (20:37)
[2022-04-13 20:38] LABS: BILIRUBIN,URINE NEGATIVE (NEGATIVE); CLARITY,URINE CLEAR; COLOR,URINE YELLOW; GLUCOSE, URINE (UA) NEGATIVE (NEGATIVE); KETONES,URINE NEGATIVE (NEGATIVE); LEUKOCYTE ESTERASE ,URINE NEGATIVE (NEGATIVE); NITRITE,URINE NEGATIVE (NEGATIVE); PROTEIN,URINE TRACE (NEGATIVE)
[2022-04-13 20:40] LABS: BACTERIA,URINE NEGATIVE /HPF; SQUAMOUS EPITHELIAL CELL,UR 0-2 /HPF; WBC,URINE 0-2 /HPF
[2022-04-13] MEDS ORDERED: HYDROmorphone 2 MG/ML VIAL (DILAUDID) IV ONE ×2 (20:45→22:45)
[2022-04-13] MEDS ORDERED: ONDANSETRON 4 MG/2 ML (SDV) Z0FRAN IVP ONE ×2 (20:45→22:45)
--- NOTE | 2022-04-13 20:54 | ED Abdominal Pain ---
General Chief Complaint: Abdominal/GI Problems Stated Complaint: ABD PAIN Nursing Triage Note: Pt here with nausea and abdominal pain; seen at [facility] and given a GI cocktail today. No improvement noted. Source of Information: Patient Exam Limitations: No Limitations History of Present Illness Date Seen by Provider: Apr 13, 2022 Time Seen by Provider: 20:53 Timing/Duration: 1 Day Severity/Quality: Moderate Location: RUQ Radiation: No Radiation Associated Symptoms: Denies Symptoms Allergies and Home Medications Allergies Coded Allergies: No Known Drug Allergies (Unverified , 12/07/18) Patient Home Medication List Home Medication List Reviewed: Yes Cetirizine HCl (Cetirizine HCl) 10 Mg Tablet, 10 MG PO DAILY, (Reported) Entered as Reported by: ADRIANA LEE on 12/04/18 1034 Ferrous Sulfate (Ferrous Sulfate) 325 Mg Tablet, 325 MG PO BID, (Reported) Entered as Reported by: ADRIANA LEE on 12/04/18 1034 Guaifenesin/Codeine (Robitussin Ac (Codeine) Syrup) 10 Ml Syrp, 10 ML PO Q6H PRN for cough Prescribed by: KRISHNA RODRÍGUEZ on 10/24/21 2201 Magnesium Oxide (Magnesium) 400 Mg Tablet, 400 MG PO DAILY, (Reported) Entered as Reported by: ADRIANA LEE on 06/16/19 1504 Ondansetron (Ondansetron Odt) 4 Mg Tab.rapdis, 4 MG PO TID Prescribed by: Ignacio Cintron on 04/13/222243 Pantoprazole Sodium (Protonix) 40 Mg Granpkt.dr, 40 MG PO DAILY Prescribed by: Ignacio Cintron on 04/13/222243 Review of Systems Review of Systems Constitutional: no symptoms reported EENTM: No Symptoms Reported Respiratory: No Symptoms Reported Cardiovascular: No Symptoms Reported Gastrointestinal: Abdominal Pain Genitourinary: No Symptoms Reported Musculoskeletal: no symptoms reported Skin: no symptoms reported Psychiatric/Neurological: No Symptoms Reported Endocrine: No Symptoms Reported Hematologic/Lymphatic: No Symptoms Reported Past [place]-Tpbstp-Cqmlns Hx Patient Social History Tobacco Use?: No Substance use?: No Alcohol Use?: No Pt feels they are or have been: No Immunizations Up To Date First/Initial COVID19 Vaccinat: N/A Second COVID19 Vaccination Marco Antonio: N/A Third COVID19 Vaccination Date: N/A Seasonal Allergies Seasonal Allergies: Yes Past Medical History Surgeries: Yes (elbow sx, uterine fibriod removed) Orthopedic, Tonsillectomy Respiratory: No Cardiac: No Neurological: No Last Menstrual Period: Apr 02, 2022 Reproductive Disorders: Yes (COMPLEX MASS IN UTERUS) Genitourinary: No Gastrointestinal: Yes Gall Bladder Disease Musculoskeletal: Yes (RIGHT ELBOW DISLOCATION WITH SURGERY) Endocrine: No HEENT: No Cancer: No Psychosocial: No Integumentary: No Blood Disorders: Yes (ANEMIA) Family Medical History Cancer 09 BROTHER (TESTICULAR) Family history: Diabetes mellitus 03 FATHER Family history: Hypertension 03 FATHER 03 MOTHER Kidney disease 03 FATHER No Family History of: Abdominal aortic aneurysm Alcoholism Cancer of colon Dementia Family history: Alzheimer's disease Family history: Arthritis Family history: Asthma Family history: Cardiovascular disease Family history: Gastrointestinal disease Family history: Thyroid disorder Hereditary disease History of - respiratory disease Myocardial infarction Parkinson's disease Prostate cancer Psychotic disorder Seizure disorder Stroke Physical Exam Vital Signs Vital Signs - First Documented 04/13/22 20:24 Temp 36.6 Pulse 80 Resp 18 B/P (MAP) 146/91 (109) Pulse Ox 99 O2 Delivery Room Air Capillary Refill : Less Than 3 Seconds Height/Weight/BMI Height: 5'5.00" Weight: 263lbs. 8.0oz. 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, alert, oriented x 3 Skin: normal color, warm/dry Progress/Results/Core Measures Results/Orders Lab Results Laboratory Tests Test 04/13/22 20:31 04/13/22 20:32 Range/Units Urine Color YELLOW Urine Clarity CLEAR Urine pH 6.0 5-9 Urine Specific [place] 1.025 H 1.016-1.022 Urine Protein TRACE H NEGATIVE Urine Glucose (UA) NEGATIVE NEGATIVE Urine Ketones NEGATIVE NEGATIVE Urine Nitrite NEGATIVE NEGATIVE Urine Bilirubin NEGATIVE NEGATIVE Urine Urobilinogen 0.2 < = 1.0 MG/DL Urine Leukocyte Esterase NEGATIVE NEGATIVE Urine RBC (Auto) NEGATIVE NEGATIVE Urine RBC NONE /HPF Urine WBC 0-2 /HPF Urine Squamous Epithelial Cells 0-2 /HPF Urine Renal Epithelial Cells NONE /HPF Urine Crystals NONE /LPF Urine Bacteria NEGATIVE /HPF Urine Casts NONE /LPF Urine Mucus SMALL H /LPF Urine Culture Indicated NO White Blood Count 15.3 H 4.3-11.0 10^3/uL Red Blood Count 5.03 3.80-5.11 10^6/uL Hemoglobin 14.8 11.5-16.0 g/dL Hematocrit 43 35-52 % Mean Corpuscular Volume 86 80-99 fL Mean Corpuscular Hemoglobin 29 25-34 pg Mean Corpuscular Hemoglobin Concent 34 32-36 g/dL Red Cell Distribution Width 13.1 10.0-14.5 % Platelet Count 286 130-400 10^3/uL Mean Platelet Volume 9.5 9.0-12.2 fL Immature Granulocyte % (Auto) 0 % Neutrophils (%) (Auto) 75 42-75 % Lymphocytes (%) (Auto) 18 12-44 % Monocytes (%) (Auto) 6 0-12 % Eosinophils (%) (Auto) 1 0-10 % Basophils (%) (Auto) 0 0-10 % Neutrophils # (Auto) 11.4 H 1.8-7.8 10^3/uL Lymphocytes # (Auto) 2.8 1.0-4.0 10^3/uL Monocytes # (Auto) 0.9 0.0-1.0 10^3/uL Eosinophils # (Auto) 0.1 0.0-0.3 10^3/uL Basophils # (Auto) 0.1 0.0-0.1 10^3/uL Immature Granulocyte # (Auto) 0.0 0.0-0.1 10^3/uL Neutrophils % (Manual) 77 % Lymphocytes % (Manual) 12 % Monocytes % (Manual) 11 % Blood Morphology Comment NORMAL Sodium Level 139 135-145 MMOL/L Potassium Level 3.5 L 3.6-5.0 MMOL/L Chloride Level 107 98-107 MMOL/L Carbon Dioxide Level 17 L 21-32 MMOL/L Anion Gap 15 H 5-14 MMOL/L Blood Urea Nitrogen 16 7-18 MG/DL Creatinine 0.99 0.60-1.30 MG/DL Estimat Glomerular Filtration Rate 73 BUN/Creatinine Ratio 16 Glucose Level 114 H 70-105 MG/DL Calcium Level 9.3 8.5-10.1 MG/DL Corrected Calcium 9.1 8.5-10.1 MG/DL Total Bilirubin 0.5 0.1-1.0 MG/DL Aspartate Amino Transf (AST/SGOT) 12 5-34 U/L Alanine Aminotransferase (ALT/SGPT) 16 0-55 U/L Alkaline Phosphatase 46 40-136 U/L Total Protein 8.1 6.4-8.2 GM/DL Albumin 4.2 3.2-4.5 GM/DL Lipase 23 8-78 U/L Serum Test, Qualitative NEGATIVE NEGATIVE My Orders Orders - KLARISSA CINTRON Ed Iv/Invasive Line Start (04/13/22 20:24) Cbc With Automated Diff (04/13/22 20:24) Comprehensive Metabolic Panel (04/13/22 20:24) Lipase (04/13/22 20:24) Ua Culture If Indicated (04/13/22 20:24) Ns Iv 1000 Ml (Sodium Chloride 0.9%) (04/13/22 20:37) Ondansetron Injection (Zofran Injectio (04/13/22 20:45) Hydromorphone Injection (Dilaudid Inject (04/13/22 20:45) Manual Differential (04/13/22 20:32) Hcg,Qualitative Serum (04/13/22 20:42) Ct Abdomen/Pelvis W (04/13/22 20:42) Hydromorphone Injection (Dilaudid Inject (04/13/22 22:45) Ondansetron Injection (Zofran Injectio (04/13/22 22:45) Medications Given in ED Current Medications Medications Dose Ordered Sig/Lisbeth Route Start Time Stop Time Status Last Admin Dose Admin Hydromorphone HCl 0.5 mg ONCE ONCE IV 04/13/22 20:45 04/13/22 20:46 DC 04/13/22 20:52 0.5 MG Iohexol 100 ml ONCE ONCE IV 04/13/22 22:15 04/13/22 22:16 DC 04/13/22 22:25 100 ML Ondansetron HCl 4 mg ONCE ONCE IVP 04/13/22 20:45 04/13/22 20:46 DC 04/13/22 20:52 4 MG Sodium Chloride 100 ml ONCE ONCE IV 04/13/22 22:15 04/13/22 22:16 DC 04/13/22 22:25 80 ML Vital Signs/I&O 04/13/22 20:24 Temp 36.6 Pulse 80 Resp 18 B/P (MAP) 146/91 (109) Pulse Ox 99 O2 Delivery Room Air Blood Pressure Mean: 109 Departure Communication (Admissions) Patient feels markedly improved in the emergency room after IV hydration and IV pain medication. CT shows a markedly distended uterus that is fluid-filled. The patient states that she is not on her menstrual cycle but she is due to start soon. I discussed with her that these types of findings are likely benign but they are concerning and need very close follow-up. I also told her that I spoke with the on-call HOUSEKEEPING DIRECTOR physician and they will see her in their office on Friday morning. I do not feel that this is the cause of the patient's symptoms. Patient is in agreement to the care plan. Impression Primary Impression: Abdominal pain Additional Impression: Nausea and vomiting Disposition: HOME, SELF-CARE Condition: Stable Departure-Patient Inst. Decision time for Depature: 22:40 Referrals: [facility] [place] ([place]/Family) Primary Care Physician MICHELLE BRYANT MD Patient Instructions: Gastritis (DC), Nausea and Vomiting, Adult Add. Discharge Instructions: Please follow-up with Dr. Bryant on Friday. They start accepting calls at 8 AM so I would call at that time and let them know that you are an emergency room follow-up and Dr. Bryant is expecting to see you on Friday. As for your abdominal pain and nausea and vomiting, if the symptoms fail to improve or even worsen over the next 1 to 2 days then I would like you to return to the emergency room for close reevaluation. This includes worsening pain, fever, uncontrolled vomiting. All discharge instructions reviewed with patient and/or family. Voiced understanding. Scripts Pantoprazole Sodium (Protonix) 40 Mg Granella. 40 MG PO DAILY for 14 Days, #14 TAB Prov: KLARISSA CINTRON 04/13/22 Ondansetron (Ondansetron Odt) 4 Mg Tab.rapdis 4 MG PO TID for Nausea, #14 TAB Prov: KLARISSA CINTRON 04/13/22 KLARISSA CINTRON Apr 13, 2022 20:54
[2022-04-13 20:55] LABS: LYMPHOCYTES % (MANUAL) 12 %; MONOCYTES % (MANUAL) 11 %; NEUTROPHILS % (MANUAL) 77 %; RBC MORPH NORMAL
[2022-04-13 20:57] LABS: ALBUMIN 4.2 GM/DL (3.2-4.5); BILIRUBIN,TOTAL 0.5 MG/DL (0.1-1.0); CALCIUM 9.3 MG/DL (8.5-10.1); CREATININE SERUM 0.99 MG/DL (0.60-1.30); POTASSIUM 3.5 MMOL/L (3.6-5.0); TOTAL PROTEIN 8.1 GM/DL (6.4-8.2)
--- NOTE | 2022-04-13 22:11 | Diagnostic Imaging Report ---
PROCEDURE: CT abdomen and pelvis with contrast. TECHNIQUE: Multiple contiguous axial images were obtained through the abdomen and pelvis after administration of intravenous contrast. Auto Exposure Controls were utilized during the CT exam to meet ALARA standards for radiation dose reduction. All CT scans use one or more of the following dose optimizing techniques: automated exposure control, MA and/or KvP adjustment based on patient size and exam type or iterative reconstruction. INDICATION: Abdominal pain. FINDINGS: Heart size is normal. There is minimal scarring or atelectasis in the lung bases. The liver is normal in size and without focal lesions. Gallbladder is surgically absent. There is no biliary ductal dilatation. Spleen is normal. The pancreas and adrenal glands are unremarkable. Kidneys are normal in appearance. The aorta is nonaneurysmal. The bowel gas pattern is nonspecific. There is no free air. There is no ascites. There is a 4.5 cm cyst in the left adnexa. There is marked distention of the uterine cavity with fluid. Bladder is normal. There is no pelvic mass or adenopathy. IMPRESSION: 1. Markedly distended uterine cavity with fluid. Possibility of a mass or obstructive process at the cervix certainly cannot be excluded. There is also a 4.5 cm left ovarian cyst. This could be further characterized with pelvic ultrasound, if clinically warranted. 2. No other acute abnormality in the abdomen or pelvis. There has been a previous cholecystectomy. Dictated by: Dictated on workstation # [id number]
[2022-04-13] MEDS ORDERED: IOHEXOL 350 MG/ML 100 ML (OMNIPAQUE 350) VIAL IV ONE (22:15)
[2022-04-13] MEDS ORDERED: NS 100 ML (IVPB) BAG IV ONE (22:15)
[2022-04-13] MEDS ORDERED: HOLD METFORMIN - RECEIVED CONTRAST 20 ML VIAL IV SCH (22:15)
[2022-04-13] MEDS ORDERED: ONDA4TAB11 PO (22:44)
[2022-04-13] MEDS ORDERED: PANT40SU PO (22:44)
[2022-04-13 23:12] VITALS: BP 155/87
== END 2022-04-13 23:12 | disposition home or self-care (01) ==
LOC: EDUNIT# 20:12 → ER 20:13
DX: R10.11 Right upper quadrant pain (principal); R11.2 Nausea with vomiting, unspecified; N85.8 Other specified noninflammatory disorders of uterus; Z28.310 Unvaccinated for COVID-19; Z32.02 Encounter for pregnancy test, result negative
CPT/HCPCS: 36415; 74177; 80053; 81000; 83690; 84703; 85007; 85027

== ENCOUNTER → 2022-04-18 | Outpatient (CLI) | payer BC ==
[~2022-04-18] MED LIST changes: +PANT40SU PO
--- NOTE | 2022-04-18 13:45 | Diagnostic Imaging Report ---
PROCEDURE: Pelvic comp/transvaginal sonogram. TECHNIQUE: Complete transabdominal and transvaginal pelvic ultrasound was performed. In addition, limited pelvic Doppler was performed. INDICATION: Abdominal pain. Patient has history of fibroids. CORRELATION is made with a recent CT study from 04/13/2022. The uterus is enlarged at 10.3 x 6.3 x 6.9 cm. Marked uterine heterogeneity is seen. There appear to be numerous fibroids present, the largest 6.7 x 6.3 x 7.5 cm. Due to the multiple fibroids, there is significant obscuration of the endometrium. Endometrium may be thickened at 2.2 cm. Right ovary could not be visualized. Left ovary measures 4.7 x 3.4 x 4.4 cm and contains a 4.0 cm cyst. There is blood flow to the left ovary. No free fluid is seen. IMPRESSION: 1. Enlarged fibroid uterus obscuring the endometrium. There is questionable thickening of the endometrium. 2. A 4 cm left adnexal cyst. Dictated by: Dictated on workstation # [id number]
== END ==
LOC: RAD 12:00
PROVIDERS: ATTEND Obstetrics & Gynecology
DX: D25.9 Leiomyoma of uterus, unspecified (principal); N83.8 Other noninflammatory disorders of ovary, fallopian tube and broad ligament
CPT/HCPCS: 76830; 76856

== ENCOUNTER 2023-09-08 05:32 | Outpatient (CLI) | payer BC ==
[~2023-09-08] VITALS: Ht 165.1 cm; Wt 121.0 kg
[2023-09-08] MEDS ORDERED: PRAM0.252 PO (09:10)
== END 2023-09-08 13:33 | disposition home or self-care (01) ==
LOC: PREOP 05:32
PROVIDERS: ATTEND Obstetrics & Gynecology
DX: Z01.818 Encounter for other preprocedural examination (principal)